=== PATIENT | male | born 1950 | race Caucasian/White ===

== ENCOUNTER 2018-01-30 07:33 | Outpatient (CLI) | payer MEDICARE, OTHER ==
--- NOTE | 2018-01-30 10:39 | CT Report ---
Reason: LUKAS ABUSE Procedure Date: 01/30/2018 Accession Number: [id number] / [id number] Procedure: CT - Chest/Lung Screen Low Dose W/O CPT Code: FULL RESULT: EXAM CT LUNG SCREEN EXAM DATE: 01/30/2018 07:49 AM. HISTORY: 67-year-old patient with [id number] smoking history. Currently smoking: Yes. COMPARISON: None. TECHNIQUE: CT examination of the entire thorax without contrast was performed using low-dose technique. Thin section coronal, axial, sagittal and MIP axial images were obtained. In accordance with CT protocol optimization, one or more of the following dose reduction techniques were utilized for this exam: automated exposure control, adjustment of mA and/or KV based on patient size, or use of iterative reconstructive technique. FINDINGS: Nodules: Right upper lobe: None. Right middle lobe: None. Right lower lobe: None. Left upper lobe: None. Left lower lobe: None. Emphysema: None. Pleura: Unremarkable. Aorta: Calcified. Mediastinum: Unremarkable. Coronary calcifications: None. Other pulmonary findings: None. Other extrapulmonary findings: Visualized portion of the upper abdomen demonstrates a low density lesion in the posterior right lobe of the liver with Hounsfield units most consistent with a simple cyst. IMPRESSION: Lung-RADS ASSESSMENT CATEGORY: 0 - negative Probability of malignancy: Not applicable. RECOMMENDATION: Recommended follow up based on Lung-RADS guidelines. RADIA
== END 2018-01-30 07:34 | disposition home or self-care (01) ==
LOC: DI 07:33
PROVIDERS: ATTEND Family Medicine
DX: Z12.2 Encounter for screening for malignant neoplasm of respiratory organs (principal); F17.210 Nicotine dependence, cigarettes, uncomplicated

== ENCOUNTER 2018-05-02 08:00 | Outpatient (CLI) | payer MEDICARE, OTHER ==
[2018-05-02 14:03] LABS: CREATININE 0.7 mg/dL (0.6-1.2)
== END 2018-05-02 23:59 | disposition home or self-care (01) ==
LOC: LAB.N 08:00
PROVIDERS: ATTEND Family Medicine
DX: R51 Headache (principal); R52 Pain, unspecified
CPT/HCPCS: 36415; 82565

== ENCOUNTER 2018-05-02 08:09 | Outpatient (CLI) | payer MEDICARE, OTHER ==
--- NOTE | 2018-05-02 11:43 | XRAY Report ---
Reason: NECK PAIN, STIFFNESS VE PARASTHESIAS/RECENT INSE Procedure Date: 05/02/2018 Accession Number: [id number] / [id number] Procedure: XRN - Cervical Spine Complete CPT Code: FULL RESULT: EXAM: CERVICAL SPINE RADIOGRAPHY EXAM DATE: 05/02/2018 08:39 AM. CLINICAL HISTORY: Neck pain, stiffness for 1 year. Doing worse. COMPARISONS: None. TECHNIQUE: 5 views. FINDINGS: Alignment: Normal. No spondylolisthesis or scoliosis. Bones: The cervical vertebral bodies and posterior elements are well-visualized from the skull base through inferior C7. The C7-T1 disk level is mostly obscured by soft tissue attenuation of the shoulder. No fractures or bone lesions. Disks: Mild disk space narrowing at C5-C6 with mild anterior osteophyte. Moderate disk space narrowing at C6-C7 also with mild anterior osteophyte. Facets: Asymmetric left-sided facet arthrosis at C3-C6 with an appearance of moderate foraminal narrowing on the left at C3-C4 and C4-C5. Neural Foramina: As above. Soft Tissues: Normal. No prevertebral soft tissue swelling. The visualized lung apices are clear. IMPRESSION: Degenerative changes as described with moderate foraminal narrowing on the left at C3-C4 and C4-C5. No fracture appreciated. RADIA
== END 2018-05-02 08:10 | disposition home or self-care (01) ==
LOC: DI.N 08:09
PROVIDERS: ATTEND Family Medicine
DX: M47.812 Spondylosis without myelopathy or radiculopathy, cervical region (principal); M48.02 Spinal stenosis, cervical region; M25.78 Osteophyte, vertebrae; R51 Headache
CPT/HCPCS: 36415; 72050; 82565

== ENCOUNTER 2018-08-27 19:25 | Outpatient (CLI) | payer MEDICARE, OTHER | END 2018-08-27 19:26 | disposition critical access hospital (66) | LOC: EMS 19:25 | PROVIDERS: ATTEND Surgery | DX: T18.128A Food in esophagus causing other injury, initial encounter (principal); R13.10 Dysphagia, unspecified; R11.10 Vomiting, unspecified | CPT/HCPCS: A0425; A0429 ==

== ENCOUNTER 2018-08-27 19:46 | Emergency (ER) | payer MEDICARE, OTHER ==
[2018-08-27] MEDS ORDERED: GLUCAGON 1 MG/ML VIAL IVP STA (19:49)
--- NOTE | 2018-08-27 19:55 | ED Physician Documentation ---
PD HPI ABD PAIN - Stated complaint Stated Complaint: FOOD OBSTRUCTION - History obtained from History obtained from: Patient, EMS - History of Present Illness Timing - onset: Today (67-year-old gentleman with history of Parkinson's who has been having increasing problems with getting food stuck over the last 8 months or so but has never needed to seek medical attention for it. Feels like he has a pork chop stuck in his esophagus, mid sternum for the last 2 hours. His airway is fine but he is not able to tolerate his secretions.) Review of Systems Ten Systems: 10 systems reviewed and negative Constitutional: reports: Reviewed and negative Nose: reports: Reviewed and negative Cardiac: reports: Reviewed and negative Respiratory: reports: Reviewed and negative PD PAST MEDICAL HISTORY - Past Medical History Past Medical History: Yes Neuro: Parkinson's - Allergies Allergies/Adverse Reactions: Allergies Allergy/AdvReac Type Severity Reaction Status Date / Time No Known Drug Allergies Allergy Verified 08/27/18 19:55 - Social History Does the pt smoke?: Yes Smoking Status: Current every day smoker Does the pt have substance abuse?: No - Family History Family history: reports: Non contributory PD ED PE NORMAL - Vitals Vital signs reviewed: Yes - General General: Alert and oriented X 3, No acute distress, Other (Spitting into a bag but speaking normally) - HEENT HEENT: PERRL, Pharynx benign - Neck Neck: Supple, no meningeal sign, No bony TTP - Cardiac Cardiac: RRR, No murmur - Respiratory Respiratory: No respiratory distress, Clear bilaterally - Abdomen Abdomen: Soft, Non tender - Derm Derm: Normal color, Warm and dry - Extremities Extremities: No edema, No calf tenderness / cord - Neuro Neuro: Alert and oriented X 3, Normal speech Results - Vitals Vitals: Vital Signs - 24 hr 08/27/18 19:52 Temperature 36.7 C Heart Rate 83 Respiratory 20 Rate Blood Pressure 137/91 H O2 Saturation 98 Oxygen O2 Source Room air PD MEDICAL DECISION MAKING - ED course ED course: 67-year-old gentleman with what sounds like progressive esophageal food impactions with an esophageal food impaction tonight. He was able to tolerate liquids okay after the administration of glucagon. He still felt like something was off and there, I discussed with him the he needs an upper endoscopy to assess this in the relatively short-term and is given a referral to a local surgeon for same. Departure - Departure Disposition: 01 Home, Self Care Clinical Impression: Esophageal obstruction due to food impaction Condition: Good Record reviewed to determine appropriate education?: Yes Instructions: ED Foreign Body Esophageal Rslv Follow-Up: Jojo Smith MD [Provider Admit Priv/Credential] - Comments: As discussed, he will need an upper endoscopy to assess why you keep getting food blocks. Call the surgeon listed on this form tomorrow to make an appointment, return if worse. I would not eat meat or large chunks of food until then.
[2018-08-27 20:51] VITALS: BP 122/94
== END 2018-08-27 20:51 | disposition home or self-care (01) ==
LOC: EDUNIT# → ED 19:46
DX: T18.128A Food in esophagus causing other injury, initial encounter (principal); X58.XXXA Exposure to other specified factors, initial encounter; G20 Parkinson's disease; F17.200 Nicotine dependence, unspecified, uncomplicated
CPT/HCPCS: 96374; 99283

== ENCOUNTER 2018-09-04 10:27 | Outpatient (CLI) | payer MEDICARE, OTHER ==
--- NOTE | 2018-09-04 15:50 | CONSULTATION NOTE ---
Palliative Care Consultation - Referral Referring Provider: Dr Leon Painting Time of Visit: Felix 09/04/2018. 9:30 - 10:40 Referral setting: [facility] [place] Referral Reason: Progressive supranuclear palsy - Information Sources Records reviewed: Previous records reviewed History/Review of Systems obtained from: Patient, Family Exam limitations: No limitations, Intoxication - History of Present Illness Brief History of Present Illness: Thank you, Dr. Painting, for asking the palliative care consult service to be involved in the care of your patient. I am asked to provide palliative support for a 68-year-old male with progressive supranuclear palsy (PSP), and rapidly deteriorating motor function, dysphagia, dysarthria and antalgia. The patient was seen in June by Angelica Jesus MD in Neurology at the [facility]. She referred him Dr Leigh Guevara, movement disorder/neurogenetics neurologist. He had also seen a neurologist in [place] 3 years ago. Patient reports that he first noticed tremors in his hand 6-8 years ago. He started experiencing motor difficulties/balance problems about 3 years ago. He saw a neurologist in [place] around then, when they started trying to get a diagnosis. He has noticed his balance worsening in the past year. He's had only one fall so far, but has near falls quite frequently. He has no eye movement complaints but is having difficulty seeing TV. He has an compensation specialist appointment tomorrow. Neither he nor his were certain of his diagnosis, which is listed as progressive supranuclear palsy on previous medical records. His reports not having heard this diagnosis previously. The patient was familiar with it, but he appears unclear as to what his diagnosis is. Both are wanting to know what to expect as the disease progresses. They state they're aware there is no cure and no medications that alter its course. We did discuss trajectory of this motor neuron disease, with expected decline, dysphagia increasing his risk for aspiration pneumonia, and gait instability increasing his fall risk, and eventually losing the ability to walk. Patient is aware that pneumonia is a common cause of with this disease process. Provided education, information, and empathetic support as needed. Discussed risks of backward falls with PSP. Patient works on slowing himself down when he walks, avoiding impulsive movement and tries to take care when he moves. Patient and his , Jazz, were told he was being referred to PT, OT, but have had only PT set up. I explained what PT and OT do, and also Speech, and that any therapy will be supportive, not curative or altering the course of disease. They want to start ST due to his advancing dysphagia (he's eating only soups now). He feels frustration with his inability to work with his hands anymore; he enjoys doing woodwork and working with his hands. He will do some limited chores and tasks around the house, and then sits down. They used to hike and have a very active He feels his his mental capacity hasn't changed, and he doesn't feel exactly depressed, but more frustrated with not being able to do things he used to be able to do with his hands. Medical/Surgical History - Past Medical History Cardiovascular: reports: Hypertension Respiratory: reports: None Neuro: Parkinson's, Other (motor neuron disease, Progressive Supranuclear Palsy) Endocrine/Autoimmune: reports: None GI: reports: None : reports: Kidney stones HEENT: reports: None Psych: reports: None Musculoskeletal: reports: None Derm: reports: None - Substance History Tobacco Details: Cigarettes (former smoker, 1/2 PPD x 35 years) Social History - Living Situation Living arrangement: At home Living Situation: With spouse/s.o. Support System: He his , Carmen, in 1981. He is retired from the [employer] after joining age 17. Also worked as airplane electrician and government jobs. He has 4 adult children, ages 33-48. He has tow sons, and Carmen flores hadve a son and daughter together. Their 33-year-old son lives in [place]. Carmen is a preschool ([employer]) teacher. The patient likes woodworking and tinkering. Family History - Family History Family History Comment/Other: Fthaer age 70s of asbestosis. Mother age 80s, with DM2, dementia. Medications/Allergies - Medications Home Medications: Ambulatory Orders Medication Instructions Recorded Confirmed Carbidopa/Levodopa 25/100 [Sinemet 2 tab PO .QAM 08/27/18 09/04/18 25 mg/100 mg] Gabapentin 300 mg PO DAILY PM 08/27/18 09/04/18 Sertraline [Zoloft] 25 mg PO DAILY 08/27/18 09/04/18 Simvastatin 10 mg PO DAILY PM 08/27/18 09/04/18 Ascorbic Acid [Vitamin C] 500 mg PO DAILY PRN 09/04/18 09/04/18 Carbidopa/Levodopa 3 tab PO QPM 09/04/18 09/04/18 [Carbidopa-Levodopa 25-100 Tab] Cinnamon Bark [Cinnamon] 1,000 mg PO DAILY PRN MDD 09/04/18 09/04/18 .supplement Coq10 Supplement 200 mg PO DAILY PRN 09/04/18 09/04/18 Multivitamin [Multivitamins] 1 cap PO DAILY PRN 09/04/18 09/04/18 Propranolol [Inderal] 10 mg PO BID 09/04/18 09/04/18 Vitamin B Complex 1 cap PO DAILY PRN 09/04/18 09/04/18 Vitamin B12 1,000 mg PO DAILY PRN 09/04/18 09/04/18 - Allergies Allergies/Adverse Reactions: Allergies Allergy/AdvReac Type Severity Reaction Status Date / Time No Known Drug Allergies Allergy Verified 08/27/18 19:55 Review of Systems - Constitutional Constitutional: reports: Fatigue, Other (214 lbs (97.1kg, 29.68 BMI) at 07/18/18 neurology visit). denies: Poor appetite - Eyes Eyes: reports: Vision loss - Ears, Nose & Throat Ears, Nose & Throat: reports: Nasal congestion (chronic; uses Neti pot with some good results) - Cardiovascular Cardiovascular: reports: Decr. exercise tolerance. denies: Palpitations, Chest pain, Edema - Respiratory Respiratory: denies: Cough, SOB at rest - Gastrointestinal Gastrointestinal: reports: Constipation (intermittent) - Genitourinary Genitourinary: denies: Incontinence - Musculoskeletal Musculoskeletal: reports: Limited range of motion (L shoulder), Assistive devices (4-footed cane; wheelchair as needed), Transfer issues - Neurological Neurological: reports: General weakness, Abnormal gait - Psychiatric Psychiatric: reports: Depression (moderate), Anxiety (moderate; feels frustration with limitations) Physical Exam - Vital Signs Temperature: 96.3 F Pulse Rate: 80 O2 Saturation: 94 (room air) Blood Pressure: 118/88 (wrist cuff) - Physical Exam General Appearance: positive: No acute distress, Alert Eyes Bilateral: positive: Normal inspection ENT: positive: No signs of dehydration Neck: positive: Trachea midline Cardiovascular: positive: Regular rate & rhythm, No murmur, No gallop Respiratory: positive: Chest non-tender, No respiratory distress, Breath sounds nml Abdomen: positive: Non-tender, Soft Skin: positive: No symptoms Extremities: positive: No pedal edema. negative: Full ROM (L shoulder impingement) Neurologic/Psychiatric: positive: Oriented x3, Mood/affect nml, Slurred/abnml speech (dysarthria) Palliative Care - POLST Patient has POLST: Yes POLST Status: DNR, Selective Treatment Pain: Comment (mild pain, L shoulder) Tiredness/Fatigue: Moderate (4-6) Drowsiness/Sedation: Moderate (4-6) Nausea: None Anxiety: Moderate (4-6) Dyspnea: None Anorexia: None Sleep: Sleeps well Constipation: Managed Performance Status: rapidly deteriorating motor function increased choking/dysphagia. now is drinking soups mild dysarthria, intelligible speech stiff, wide gait, uses 4-footed cane weak lower extremities, requires assistance getting up from chair difficulty with fine motor skills/grasping with hands difficulty with reach, difficulty telling if he's holding something no cognitive or mood changes - Palliative Care Discussion: Patient has previously determined his POLST with his PCP: DNR, no heroics, but OK for hospitalization, but not artificial tube feeding or life support. He reiterates today that he would not want life support and does not want tube feeding. He is expecting to be wheelchair bound and he does realize this is terminal. They did not ask about life expectancy. Right now their greatest concern is any improvement /support of his functionality via therapy, and particularly ST for the dysphagia. They have an appointment with PT, but haven't heard anything about OT or Speech. He is currently on liquids/puree, soups. He is scheduled for an endoscopy on Saturday. Pain is not currently an issue. He does feel fatigue and frustration from physical limitations. He and Jazz had an active lifestyle, with camping, his woodwork. They both express regret, sadness with this loss. Presented palliative care social work and delivery person services, will reiterate in future visits as appropriate. Impression and Recommendations - Palliative Care Impression: 68-year-old male with progressive supranuclear palsy and rapidly deteriorating motor function, dysphagia, dysarthria and antalgia. He is pursuing diagnostics (endoscopy scheduled for next week) and PT, OT, ST therapy, and would benefit from ongoing palliative care support and monitoring. Recommendations/Counseling Done: Progressive Supranuclear Palsy: Patient's balance, motor skills, swallowing and speech are rapidly declining. ST/OT ordered by PCP. [facility] in [place] only does PT. Spoke with patient's spouse, they would like to go to a single location for PT, OT, Speech therapies, are agreeable to switch to [facility] clinic. Palliative care is working with PCP office to get orders for all three (PT OT ST) to [facility] rehab. He's seeing PCP next Saturday. Dysphagia: Worsening, currently on liquids, purees. Endoscopy scheduled for Friday 09/08. He would benefit from speech therapy for evaluation and treatment of dysphagia and dysarthria. See above. Vision loss: Difficulty viewing television, they have compensation specialist visit scheduled for next week. Advance care planning: POLST is at home, no copy in [facility]. DNR, selective treatment, no TF. Patient is agreeable to hospital transfers for reversible conditions. Patient does not want tube feeding or life support/intubation. Their current goals are getting his endoscopy and rehabilitation/speech therapy for swallowing issues, and also pursuing PT/OT therapies. Palliative care will continue to follow and support this patient and his family through the disease process. Follow up 1-2 weeks. Time Spent: 70 minutes were spent with more than 50% of the time spent on counseling, education, providing anticipatory guidance about progressive supranuclear palsy, and coordination of care with family and rehabilitation therapy.
== END 2018-09-04 10:28 | disposition home or self-care (01) ==
LOC: PC 10:27
PROVIDERS: ATTEND Nurse Practitioner
DX: Z51.5 Encounter for palliative care (principal); G23.1 Progressive supranuclear ophthalmoplegia [Steele-Richardson-Olszewski]; G20 Parkinson's disease; R13.10 Dysphagia, unspecified; R47.1 Dysarthria and anarthria; H54.7 Unspecified visual loss; F32.9 Major depressive disorder, single episode, unspecified; F41.9 Anxiety disorder, unspecified; Z91.81 History of falling; Z87.891 Personal history of nicotine dependence; Z66 Do not resuscitate; Z79.899 Other long term (current) drug therapy
CPT/HCPCS: 99205

== ENCOUNTER 2018-09-08 13:53 | Outpatient (CLI) | payer MEDICARE, OTHER ==
--- NOTE | 2018-09-08 15:00 | XRAY Report ---
Reason: ESOPHAGEAL STRICTURE Procedure Date: 09/08/2018 Accession Number: [id number] / [id number] Procedure: FL - Esophogram CPT Code: FULL RESULT: EXAM: BARIUM ESOPHAGRAM EXAM DATE: 09/08/2018 02:38 PM. CLINICAL HISTORY: Esophageal stricture. COMPARISONS: None. TECHNIQUE: Routine double contrast esophagram. Fluoroscopy Time: 2 minutes 8 seconds. Number of Images: 36. FINDINGS: Swallowing Mechanism: Normal. No tracheal aspiration or penetration during swallowing. Delayed aspiration is noted in the form of coughing as pooled contrast material is unable to pass the distal esophagus. Esophageal Motility: Esophageal spasm is seen. Mucosa: Limited evaluation due to persistent contrast column, diffuse esophageal spasm and stricture. Gastroesophageal Junction: There is a persistent stricture which inhibits passing of the barium tablet in the region of the gastroesophageal junction. A mass in this region is not excluded. Other: None. IMPRESSION: Distal esophageal stricture with resulting esophageal spasm and aspiration. Recommendation: Upper endoscopy for diagnosis including exclusion of underlying malignancy and consideration for therapeutic dilation as indicated. RADIA
== END 2018-09-08 13:54 | disposition home or self-care (01) ==
LOC: DI 13:53
PROVIDERS: ATTEND Surgery
DX: K22.2 Esophageal obstruction (principal); K22.4 Dyskinesia of esophagus
CPT/HCPCS: 74220

== ENCOUNTER 2018-12-02 10:11 | Outpatient (CLI) | payer MEDICARE, OTHER ==
--- NOTE | 2018-12-03 17:13 | XRAY Report ---
Reason: CHRONIC R HIP PAIN, FALL 05/2018 Procedure Date: 12/02/2018 Accession Number: [id number] / [id number] Procedure: XRN - Hips 2V BILAT CPT Code: FULL RESULT: EXAM: BILATERAL HIP RADIOGRAPHY EXAM DATE: 12/02/2018 10:43 AM. CLINICAL HISTORY: CHRONIC R HIP PAIN, FALL 05/2018. COMPARISON: None. TECHNIQUE: 2 views each. FINDINGS: Bones: Normal. No fractures or bone lesion. Right Hip: Normal. No dislocation. The hip joint space is preserved. Left Hip: Normal. No dislocation. The hip joint space is preserved. Soft Tissues: Normal. No soft tissue swelling. IMPRESSION: Normal bilateral hip radiography. RADIA
== END 2018-12-02 10:12 | disposition home or self-care (01) ==
LOC: DI.N 10:11
PROVIDERS: ATTEND Family Medicine
DX: M25.551 Pain in right hip (principal); M25.552 Pain in left hip; G89.29 Other chronic pain
CPT/HCPCS: 73521

== ENCOUNTER 2018-12-10 08:50 | Outpatient (CLI) | payer MEDICARE, OTHER ==
--- NOTE | 2018-12-10 10:52 | Ultrasound Report ---
Reason: RETENTION OF URINE, PROGRESSIVE SUPRANUCLEAR OPHTH Procedure Date: 12/10/2018 Accession Number: [id number] / [id number] Procedure: US - Bladder CPT Code: FULL RESULT: EXAM: PELVIS ULTRASOUND, LIMITED EXAM DATE: 12/10/2018 09:24 AM. CLINICAL HISTORY: RETENTION OF URINE, PROGRESSIVE SUPRANUCLEAR OPHTH. COMPARISON: None. TECHNIQUE: Real-time scanning was performed with static images obtained. Region of interest: Urinary bladder. FINDINGS: Urinary bladder demonstrates prevoid volume of 200 cc, postvoid volume of 32 cc. Bilateral ureteral jets are seen. There is focal thickening/mass along the right bladder wall measuring up to 1.1 x 2.1 x 1.7 cm with internal vascularity, suspicious for neoplasia. IMPRESSION: 1. Apparent bladder wall mass, suspicious for neoplasia. Cystoscopic correlation recommended. 2. Postvoid bladder volume 32 cc. RADIA The call report notification system was initiated by Dr. Suraj Torrez at 10:43 AM on 12/10/2018. The above call report findings were discussed with Dr Edison Mcnamara by Dr. Suraj Torrez at 10:51 AM on 12/10/2018.
== END 2018-12-10 08:51 | disposition home or self-care (01) ==
LOC: DI 08:50
PROVIDERS: ATTEND Internal Medicine
DX: N32.89 Other specified disorders of bladder (principal); R33.8 Other retention of urine; G23.1 Progressive supranuclear ophthalmoplegia [Steele-Richardson-Olszewski]
CPT/HCPCS: 76857

== ENCOUNTER 2018-12-11 07:49 | Outpatient (CLI) | payer MEDICARE, OTHER ==
[2018-12-11] MEDS ORDERED: IOVERSOL 320 100 ML VIAL IVP ONE ×2 (08:18→09:44)
[2018-12-11] MEDS ORDERED: IOVERSOL 320 50 ML VIAL ONE (08:18)
[2018-12-11 08:37] LABS: CREATININE 0.8 mg/dL (0.6-1.2)
--- NOTE | 2018-12-11 18:15 | CT Report ---
Reason: BLADDER MASS SEEN ON US Procedure Date: 12/11/2018 Accession Number: [id number] / [id number] Procedure: CT - Abdomen/Pelvis W CPT Code: FULL RESULT: EXAM: CT ABDOMEN AND PELVIS EXAM DATE: 12/11/2018 09:38 AM. CLINICAL HISTORY: BLADDER MASS SEEN ON US. COMPARISONS: BLADDER 12/10/2018 9:24 AM. TECHNIQUE: Routine helical CT imaging was performed through the abdomen and pelvis. Delayed imaging performed through the pelvis. IV contrast: OPTI 320 100ML. Enteric contrast: Yes. Reconstructions: Coronal and sagittal. In accordance with CT protocol optimization, one or more of the following dose reduction techniques were utilized for this exam: automated exposure control, adjustment of mA and/or KV based on patient size, or use of iterative reconstructive technique. FINDINGS: Lung Bases: 5 mm nodule left lower lobe containing calcification 06/06. No pleural effusion. Liver: 4 cm right lobe hepatic cyst 26 cm low attenuation anterior liver 15 to small to accurately characterize.. No masses. Gallbladder/Bile Ducts: Unremarkable. Spleen: Normal. Pancreas: Normal. Adrenal Glands: Normal. Kidneys: Nonobstructing right lower pole 6 and 3 mm stones. Nonobstructing left lower pole 1.2 cm stone. No hydronephrosis or solid mass. Peritoneal Cavity/Bowel: No free fluid, free air or adenopathy. No masses or acute inflammatory process. The appendix is unremarkable. There is extensive colonic diverticulosis. There is wall thickening of the sigmoid colon with minimal posterior fat stranding , 6/34, 5/42 and asymmetric wall thickening. Pelvic Organs: The bladder appears thick-walled and trabeculated. The mass described on the prior ultrasound report along the right side of the bladder is not currently appreciated . There is a 9 mm right-sided bladder diverticulum 12/11. The prostate is mildly enlarged in size, volume 36 cc. 3 cm tubular structure anterior to the bladder on the left is of uncertain significance. Vasculature: Descending aorta borderline in size 3.1 cm .. Bones: No significant abnormality. Other: None. IMPRESSION: 1. The bladder mass described on the 12/10/2018 ultrasound report is not appreciated on this study. Further evaluation by cystoscopy suggested. 2. The bladder appears thick-walled, trabeculated, and with a small right-sided diverticulum, consider chronic obstruction. 3. Prominent prostate, volume 36 cc. 4. Borderline descending aorta 3.1 cm. 5. 3 cm tubular structure anterior to the left bladder, uncertain significance. 6. Extensive colonic diverticulosis most marked sigmoid. Asymmetric sigmoid wall thickening with associated fat stranding may be secondary to chronic inflammation; other etiologies not excluded. Consider colonoscopy if this has not been performed. 7. Bilateral nonobstructing renal calculi. 8. 4 cm hepatic cyst. 9. Left lower lobe granuloma. RADIA
== END 2018-12-11 07:50 | disposition home or self-care (01) ==
LOC: DI 07:49
PROVIDERS: ATTEND Family Medicine
DX: N32.3 Diverticulum of bladder (principal); N40.0 Benign prostatic hyperplasia without lower urinary tract symptoms; K57.30 Diverticulosis of large intestine without perforation or abscess without bleeding; N20.0 Calculus of kidney; K76.89 Other specified diseases of liver; J84.10 Pulmonary fibrosis, unspecified
CPT/HCPCS: 36415; 74177; 82565; Q9967

== ENCOUNTER 2019-05-09 12:44 | Outpatient (CLI) | payer MEDICARE, OTHER ==
--- NOTE | 2019-05-11 02:47 | Ultrasound Report ---
Reason: LT INGUINAL PAIN Procedure Date: 05/09/2019 Accession Number: [id number] / [id number] Procedure: US - Pelvic Limited or F/U CPT Code: Final Report FULL RESULT: EXAM: INGUINAL ULTRASOUND EXAM DATE: 05/11/2019. CLINICAL HISTORY: LT INGUINAL PAIN. COMPARISON: None. TECHNIQUE: Real-time sonographic imaging of the left inguinal canal and vascular structures, including color-flow, was performed by the strategic communications specialist. Multiple accounting representative static images were saved for review. FINDINGS: Hernia: None identified with or without Valsalva. Soft Tissues: Normal. No fluid collections or adenopathy. Other: Postsurgical changes at the left groin likely reflect a history of left inguinal hernia repair.. IMPRESSION: Normal. No inguinal hernia evident. RADIA
== END 2019-05-09 12:45 | disposition home or self-care (01) ==
LOC: DI 12:44
PROVIDERS: ATTEND Physician Assistant
DX: R10.32 Left lower quadrant pain (principal)
CPT/HCPCS: 76857

== ENCOUNTER 2019-09-24 11:10 | Outpatient (CLI) | payer MEDICARE, OTHER ==
--- NOTE | 2019-09-24 13:21 | XRAY Report ---
PROCEDURE: Abdomen 1 View X-Ray INDICATIONS: NEPHROLITHIASIS TECHNIQUE: 1 view of the abdomen were acquired. COMPARISON: CT dated 12/11/2018 FINDINGS: Surgical changes and devices: None. Bowel: No pneumoperitoneum. The bowel gas pattern is nonobstructive. Soft tissues: No masses; visualized solid organ contours appear normal in size. No suspicious abdom inal calcifications. There is an 11 mm oval calcification projecting over the central aspect of the l eft renal shadow compatible with previously described nephrolith. The smaller, 6 mm right nephrolith seen on comparison CT is not visualized radiographically. Bones: No suspicious bony abnormalities. IMPRESSION: Abdomen without acute radiographic abnormalities. 11 mm left renal stone comparable to size and location seen on comparison CT dated 12/11/2018. Previously seen 6 mm right-sided nephrolith is not visualized radiographically. Reviewed by: Javi Perez MD on 09/24/2019 1:20 PM PDT Approved by: Javi Perez MD on 09/24/2019 1:20 PM PDT Station ID: [id number]
== END 2019-09-24 11:11 | disposition home or self-care (01) ==
LOC: DI 11:10
PROVIDERS: ATTEND Urology
DX: N20.0 Calculus of kidney (principal); R39.9 Unspecified symptoms and signs involving the genitourinary system; Z12.5 Encounter for screening for malignant neoplasm of prostate
CPT/HCPCS: 36415; 74018; 84153

== ENCOUNTER 2019-09-24 11:30 | Outpatient (CLI) | payer MEDICARE, OTHER | END 2019-09-24 11:31 | disposition home or self-care (01) | LOC: LAB 11:30 | PROVIDERS: ATTEND Urology | DX: R39.9 Unspecified symptoms and signs involving the genitourinary system (principal); Z12.5 Encounter for screening for malignant neoplasm of prostate | CPT/HCPCS: 36415; 84153 ==

== ENCOUNTER 2020-08-16 20:26 | Outpatient (CLI) | payer MEDICARE, OTHER | END 2020-08-16 20:27 | disposition critical access hospital (66) | LOC: EMS 20:26 | DX: F41.9 Anxiety disorder, unspecified (principal); R42 Dizziness and giddiness; R53.1 Weakness; I10 Essential (primary) hypertension | CPT/HCPCS: A0425; A0429 ==

== ENCOUNTER 2020-08-16 20:45 | Emergency (ER) | payer MEDICARE, OTHER ==
[2020-08-16] MEDS ORDERED: SODIUM CHLORIDE 0.9% 500 ML IV STA (20:53)
--- NOTE | 2020-08-16 20:54 | ED Physician Documentation ---
PD HPI DYSPNEA - Stated complaint Stated Complaint: ELEVATED BP/DIZZY - History obtained from History obtained from: Patient, Family, EMS - History of Present Illness Timing - onset: Today (he takes his BP twice daily regularly and is usually 110/70. Today noted it 145/100. No chest pain, dyspnea, headache. Had felt less fluid intake the past day or two. No illness per se.) Timing - onset during: Rest Timing - details: Abrupt onset (just this evening noted BP elevated. HR normal.) Inciting event(s): No: URI, Emotional event Improved by: No: Rest Associated symptoms: No: Fever, Cough, Wheezing, Chest pain / discomfort, Bilateral edema, Anxiety Similar symptoms before: Has not had sx before Recently seen: Not recently seen Review of Systems Constitutional: denies: Fever, Myalgias Nose: denies: Rhinorrhea / runny nose, Congestion Throat: denies: Sore throat Cardiac: denies: Chest pain / pressure, Palpitations Respiratory: denies: Cough GI: denies: Abdominal Pain, Vomiting, Diarrhea, Bloody / black stool : denies: Dysuria, Frequency Neurologic: denies: Near syncope, Altered mental status, Headache PD PAST MEDICAL HISTORY - Past Medical History Cardiovascular: Hypertension Respiratory: None Neuro: Parkinson's, Other (motor neuron disease, Progressive Supranuclear Palsy) Endocrine/Autoimmune: None GI: None : Kidney stones HEENT: None Psych: None Musculoskeletal: None Derm: None - Present Medications Home Medications: Ambulatory Orders Medication Instructions Recorded Confirmed Carbidopa/Levodopa 25/100 [Sinemet 2 tab PO .QAM 08/27/18 08/16/20 25 mg/100 mg] Sertraline [Zoloft] 25 mg PO DAILY 08/27/18 08/16/20 Simvastatin 10 mg PO DAILY PM 08/27/18 08/16/20 Ascorbic Acid [Vitamin C] 500 mg PO DAILY PRN 09/04/18 08/16/20 Cinnamon Bark [Cinnamon] 1,000 mg PO DAILY PRN MDD 09/04/18 08/16/20 .supplement Coq10 Supplement 200 mg PO DAILY PRN 09/04/18 08/16/20 Multivitamin [Multivitamins] 1 cap PO DAILY PRN 09/04/18 08/16/20 Vitamin B12 1,000 mg PO DAILY PRN 09/04/18 08/16/20 Celecoxib [CeleBREX] 100 mg PO BID 08/16/20 08/16/20 Riluzole [Rilutek] 50 mg PO DAILY 08/16/20 08/16/20 - Allergies Allergies/Adverse Reactions: Allergies Allergy/AdvReac Type Severity Reaction Status Date / Time No Known Drug Allergies Allergy Verified 08/27/18 19:55 - Social History Does the pt smoke?: Yes Smoking Status: Current every day smoker Does the pt drink ETOH?: No Does the pt have substance abuse?: No - Immunizations Immunizations are current?: Yes - POLST Patient has POLST: Yes PD ED PE NORMAL - Vitals Vital signs reviewed: Yes - General General: Alert and oriented X 3, No acute distress, Well developed/nourished - HEENT HEENT: Pharynx benign - Neck Neck: Supple, no meningeal sign, No adenopathy - Cardiac Cardiac: RRR, No murmur - Respiratory Respiratory: Clear bilaterally - Abdomen Abdomen: Soft, Non tender - Male Male : Deferred - Rectal Rectal: Deferred - Back Back: No CVA TTP - Derm Derm: Normal color, Warm and dry - Extremities Extremities: No deformity, No tenderness to palpate, No edema, No calf tenderness / cord - Neuro Neuro: Alert and oriented X 3, 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 No: ST elevation c/w ischemia, ST depression - Labs Labs: Laboratory Tests 08/16/20 08/16/20 08/16/20 21:08 21:20 21:20 WBC 6.5 RBC 4.82 Hgb 14.8 Hct 44.9 MCV 93.2 MCH 30.7 MCHC 33.0 RDW 13.2 Plt Count 169 MPV 9.9 Neut # (Auto) 3.1 Lymph # (Auto) 2.5 [place] # (Auto) 0.6 Eos # (Auto) 0.1 Baso # (Auto) 0.1 Absolute Nucleated RBC 0.00 Nucleated RBC % 0.0 Sodium 140 Potassium 4.0 Chloride 108 Carbon Dioxide 25 Anion Gap 7.0 BUN 17 Creatinine 0.7 Estimated GFR (MDRD) 111 Glucose 101 H Calcium 8.9 Magnesium 2.1 Total Bilirubin 0.6 AST 19 ALT 23 Alkaline Phosphatase 54 Troponin I High Sens B-Natriuretic Peptide Total Protein 7.0 Albumin 4.2 Globulin 2.8 Albumin/Globulin Ratio 1.5 Lipase 25 Urine Color YELLOW Urine Clarity CLEAR Urine pH 6.0 Ur Specific [place] 1.025 Urine Protein NEGATIVE Urine Glucose (UA) NEGATIVE Urine Ketones NEGATIVE Urine Occult Blood NEGATIVE Urine Nitrite NEGATIVE Urine Bilirubin NEGATIVE Urine Urobilinogen 0.2 (NORMAL) Ur Leukocyte Esterase NEGATIVE Ur Microscopic Review NOT INDICATED Urine Culture Comments NOT INDICATED 08/16/20 08/16/20 21:20 21:20 WBC RBC Hgb Hct MCV MCH MCHC RDW Plt Count MPV Neut # (Auto) Lymph # (Auto) [place] # (Auto) Eos # (Auto) Baso # (Auto) Absolute Nucleated RBC Nucleated RBC % Sodium Potassium Chloride Carbon Dioxide Anion Gap BUN Creatinine Estimated GFR (MDRD) Glucose Calcium Magnesium Total Bilirubin AST ALT Alkaline Phosphatase Troponin I High Sens 6.6 B-Natriuretic Peptide 22 Total Protein Albumin Globulin Albumin/Globulin Ratio Lipase Urine Color Urine Clarity Urine pH Ur Specific [place] Urine Protein Urine Glucose (UA) Urine Ketones Urine Occult Blood Urine Nitrite Urine Bilirubin Urine Urobilinogen Ur Leukocyte Esterase Ur Microscopic Review Urine Culture Comments - Rads (name of study) chest xray Radiology: Prelim report reviewed (no acute process), See rad report PD MEDICAL DECISION MAKING - ED course Complexity details: reviewed results (no acute abnormalities. ), re-evaluated patient, considered differential (unusually elevated BP for the patient but not extremely elevated by numbers per se. No obvious contributor for it. Basic labs and exam normal. ), d/w patient Departure - Departure Disposition: 01 Home, Self Care Clinical Impression: Elevated blood pressure reading Condition: Stable Record reviewed to determine appropriate education?: Yes Instructions: ED Hypertension Poss Comments: Your chest x-ray, EKG, blood tests are good here. No signs of significant abnormality causing your blood pressure to be elevated. At this point stay well-hydrated and low-salt foods and see how it does over the next week or so. Follow-up with your primary care if persistently elevated. Return if symptoms such as shortness of breath, edema, persistent headache, chest pain or other concerns. Discharge Date/Time: 08/16/20 23:00
--- OUTSIDE RECORDS SUMMARY | 2020-08-16 21:18 | EXTERNAL MEDICAL SUMMARY RPT | Continuity of Care Document ---
:1950 Demographics Phone Unavailable Preferred Language Micronesian Marital Status Unknown Jew Affiliation Unknown Race Unknown Ethnic Group Unknown Author Organization [place] Address [address] [phone] Phone Care Team Providers Name Role Phone Ayana Unavailable Unavailable Allergies Encounters Medications date description facility 20200525 Simvastatin 10 MG Oral Tablet [facility] 20200525 Sertraline [address] [facility] spital 20200525 gabapentin 300 MG Oral Capsule [facility] 20200525 Acetaminophen 250 MG / Aspirin 250 MG / Caffeine 65 MG [facility] Oral Tablet [Excedrin] 20200525 Albuterol 0.833 MG/ML / Ipratropium Bro mide 0.167 MG/ML [facility] Inhalant Solution Problems date description facility 20200525 Dysphagia, pharyngoesophageal phase Is [facility] 20200523 Encounter for preprocedural laboratory examination [facility] 20200523 Contact with and (suspected) exposure t o COVID-19 [facility] Procedures date description facility 20200525 [facility] 20200523 [facility] Results Vital Signs date measurement value source 20200525 weight_standard 193.98 lb 20200525 weight_metric 87.99 kg 20200525 temperature_standard 98.1 F 20200525 temperature_metric 36.72 C 20200525 respiration_rate 11 /min 20200525 height_standard 71 in 20200525 height_metric 180.34 cm 20200525 heart_rate 62 /min 20200525 BP_systolic 118 mm[Hg] 20200525 BP_diastolic 76 mm[Hg] 20200525 BMI 27.0 kg/m2
[2020-08-16 21:29] LABS: BASOPHILS # (AUTO) 0.1 10^3/uL (0.0-0.1); BASOPHILS % (AUTO) 1.4 %; EOSINOPHILS # (AUTO) 0.1 10^3/uL (0.0-0.7); EOSINOPHILS % (AUTO) 1.8 %; HCT - HEMATOCRIT 44.9 % (42.0-52.0); HGB - HEMOGLOBIN 14.8 g/dL (14.0-18.0); LYMPHOCYTES # (AUTO) 2.5 10^3/uL (1.5-3.5); LYMPHOCYTES % (AUTO) 38.8 %; MEAN CORPUSCULAR HEMOGLOBIN 30.7 pg (27.0-31.0); MEAN CORPUSCULAR VOLUME 93.2 fL (80.0-94.0); MEAN PLATELET VOLUME 9.9 fL (7.4-11.4); MONOCYTES # (AUTO) 0.6 10^3/uL (0.0-1.0); MONOCYTES % (AUTO) 9.9 %; NEUTROPHILS # (AUTO) 3.1 10^3/uL (1.5-6.6); NEUTROPHILS % (AUTO) 47.9 %; PLT - PLATELET COUNT 169 10^3/uL (130-450); RED BLOOD COUNT 4.82 10^6/uL (4.70-6.10); RED CELL DISTRIBUTION WIDTH 13.2 % (12.0-15.0); WHITE BLOOD COUNT 6.5 x10^3/uL (4.8-10.8)
[2020-08-16 21:30] LABS: BILIRUBIN,URINE NEGATIVE (NEGATIVE); GLUCOSE, URINE (UA) NEGATIVE (NEGATIVE); KETONES,URINE (UA) NEGATIVE (NEGATIVE); LEUKOCYTE ESTERASE, URINE NEGATIVE (NEGATIVE); NITRITE,URINE NEGATIVE (NEGATIVE); OCCULT BLOOD,URINE NEGATIVE (NEGATIVE); PROTEIN,URINE NEGATIVE (NEGATIVE); UROBILINOGEN,URINE 0.2 (NORMAL) E.U./dL (NORMAL)
[2020-08-16 21:32] LABS: CLARITY,URINE CLEAR (CLEAR)
[2020-08-16 21:40] LABS: ALBUMIN 4.2 g/dL (3.2-5.5); ALBUMIN/GLOBULIN RATIO 1.5 (1.0-2.2); BILIRUBIN,TOTAL 0.6 mg/dL (0.2-1.0); CALCIUM 8.9 mg/dL (8.5-10.3); CREATININE 0.7 mg/dL (0.6-1.2); MAGNESIUM 2.1 mg/dL (1.7-2.8)
--- NOTE | 2020-08-16 21:45 | XRAY Report ---
PROCEDURE: Chest 1 View X-Ray INDICATIONS: Chest Pain TECHNIQUE: One view of the chest was acquired. COMPARISON: None. FINDINGS: Surgical changes and devices: None. Lungs and pleura: No pleural effusions or pneumothorax. Lungs are clear. Mediastinum: Mediastinal contours appear normal. Heart size is normal. Bones and chest wall: No suspicious bony lesions. Overlying soft tissues appear unremarkable. IMPRESSION: No acute disease. Reviewed by: Saul Ashby MD on 08/16/2020 9:43 PM PDT Approved by: Saul Ashby MD on 08/16/2020 9:43 PM PDT Station ID: [id number]
[2020-08-16 22:21] VITALS: BP 139/99
== END 2020-08-16 23:00 | disposition home or self-care (01) ==
LOC: EDUNIT# → ED 20:45
DX: I10 Essential (primary) hypertension (principal); R42 Dizziness and giddiness; G20 Parkinson's disease; G23.1 Progressive supranuclear ophthalmoplegia [Steele-Richardson-Olszewski]; F17.200 Nicotine dependence, unspecified, uncomplicated
CPT/HCPCS: 36415; 80053; 81001; 81003; 83690; 83735; 83880; 84484; 85025; 87086; 93005; 96360; 99283

== ENCOUNTER 2020-10-21 11:00 | Outpatient (CLI) | payer MEDICARE, OTHER | END 2020-10-21 11:01 | disposition critical access hospital (66) | LOC: EMS 11:00 | DX: R07.89 Other chest pain (principal); R00.0 Tachycardia, unspecified | CPT/HCPCS: A0425; A0427 ==

== ENCOUNTER 2020-10-21 11:23 | Emergency (ER) | payer MEDICARE, OTHER ==
--- NOTE | 2020-10-21 11:47 | ED Physician Documentation ---
History of Present Illness - Stated complaint Stated Complaint: CP - Chief complaint Chief Complaint: Cardiac - History obtained from History obtained from: Patient, Family, EMS - History of Present Illness Timing: Today Pain level max: 5 Pain level now: 0 - Additonal information Additional information: Patient is a 70-year-old male brought in by EMS and family today. He states that he was at home when he began to develop chest pain. Had mild shortness of breath as well. Nonradiating. [place] like a dull ache. [place] his heart racing. This has not happened before. Has a history of Parkinson's disease. No cardiac history. No history of acute coronary syndrome. No stents or bypasses. EMS arrived and found him to be in SVT. Given 6 of adenosine and then 12 adenosine. Converted to sinus rhythm and symptoms resolved. Patient currently asymptomatic. Review of Systems Ten Systems: 10 systems reviewed and negative Constitutional: denies: Fever, Chills Throat: denies: Sore throat Cardiac: reports: Palpitations. denies: Calf pain Respiratory: denies: Cough, Wheezing GI: denies: Nausea, Vomiting : denies: Dysuria Musculoskeletal: denies: Neck pain, Back pain Neurologic: denies: Headache PD PAST MEDICAL HISTORY - Past Medical History Cardiovascular: Hypertension Respiratory: None Neuro: Parkinson's, Other (motor neuron disease, Progressive Supranuclear Palsy) Endocrine/Autoimmune: None GI: None : Kidney stones HEENT: None Psych: None Musculoskeletal: None Derm: None - Past Surgical History Past Surgical History: Yes - Present Medications Home Medications: Ambulatory Orders Medication Instructions Recorded Confirmed Carbidopa/Levodopa 25/100 [Sinemet 2 tab PO .QAM 08/27/18 08/16/20 25 mg/100 mg] Sertraline [Zoloft] 25 mg PO DAILY 08/27/18 08/16/20 Simvastatin 10 mg PO DAILY PM 08/27/18 08/16/20 Ascorbic Acid [Vitamin C] 500 mg PO DAILY PRN 09/04/18 08/16/20 Cinnamon Bark [Cinnamon] 1,000 mg PO DAILY PRN MDD 09/04/18 08/16/20 .supplement Coq10 Supplement 200 mg PO DAILY PRN 09/04/18 08/16/20 Multivitamin [Multivitamins] 1 cap PO DAILY PRN 09/04/18 08/16/20 Vitamin B12 1,000 mg PO DAILY PRN 09/04/18 08/16/20 Celecoxib [CeleBREX] 100 mg PO BID 08/16/20 08/16/20 Riluzole [Rilutek] 50 mg PO DAILY 08/16/20 08/16/20 - Allergies Allergies/Adverse Reactions: Allergies Allergy/AdvReac Type Severity Reaction Status Date / Time No Known Drug Allergies Allergy Verified 10/21/20 11:35 - Social History Does the pt smoke?: Yes Smoking Status: Current every day smoker Does the pt drink ETOH?: No Does the pt have substance abuse?: No - Immunizations Immunizations are current?: Yes - POLST Patient has POLST: Yes PD ED PE NORMAL - Vitals Vital signs reviewed: Yes - General General: Alert and oriented X 3, No acute distress, Well developed/nourished - HEENT HEENT: PERRL, Moist mucous membranes - Neck Neck: Supple, no meningeal sign - Cardiac Cardiac: RRR, Strong equal pulses - Respiratory Respiratory: No respiratory distress, Clear bilaterally - Abdomen Abdomen: Soft, Non tender, Non distended - Derm Derm: Warm and dry - Extremities Extremities: No edema - Neuro Neuro: Alert and oriented X 3 - Psych Psych: Normal mood, Normal affect Results - Vitals Vitals: Vital Signs - 24 hr 10/21/20 10/21/20 10/21/20 11:30 12:00 12:30 Temperature 37.3 C 37.0 C Heart Rate 90 93 94 Respiratory 23 18 13 Rate Blood Pressure 123/84 H 105/80 105/81 H O2 Saturation 95 95 94 10/21/20 10/21/20 13:00 13:19 Temperature 37.1 C 37.2 C Heart Rate 94 95 Respiratory 16 16 Rate Blood Pressure 92/75 127/82 H O2 Saturation 99 96 Oxygen O2 Source Room air - EKG (time done) 1135 Rate: Rate (enter#) (89) Rhythm: NSR [place]: Normal Intervals: Normal [place] QRS: Normal Ischemia: Normal ST segments - Labs Labs: Laboratory Tests 10/21/20 10/21/20 10/21/20 12:06 12:06 12:06 WBC 8.0 RBC 4.69 L Hgb 14.7 Hct 44.1 MCV 94.0 MCH 31.3 H MCHC 33.3 RDW 13.0 Plt Count 155 MPV 10.0 Neut # (Auto) 5.8 Lymph # (Auto) 1.5 [place] # (Auto) 0.6 Eos # (Auto) 0.1 Baso # (Auto) 0.1 Absolute Nucleated RBC 0.00 Nucleated RBC % 0.0 Sodium 139 Potassium 4.0 Chloride 108 Carbon Dioxide 20 L Anion Gap 11.0 BUN 16 Creatinine 0.8 Estimated GFR (MDRD) 95 Glucose 98 Calcium 9.0 Total Bilirubin 1.5 H AST 17 ALT 17 Alkaline Phosphatase 39 L Troponin I High Sens 6.5 Total Protein 6.9 Albumin 4.4 Globulin 2.5 Albumin/Globulin Ratio 1.8 Lipase 24 - Rads (name of study) cxr Radiology: Final report received, EMP read contemporaneously, See rad report (No acute cardiopulmonary abnormality. ) PD MEDICAL DECISION MAKING - ED course Complexity details: reviewed results, re-evaluated patient, considered differential, d/w patient ED course: Patient with an episode of SVT prior to arrival. Resolved with adenosine with EMS. Asymptomatic here. No acute findings on laboratory testing, EKG or chest x-ray. We will have him follow-up with his doctor for further care. Patient counseled regarding signs and symptoms for which I believe and urgent re- evaluation would be necessary. Patient with good understanding of and agreement to plan and is comfortable going home at this time This document was made in part using voice recognition software. While efforts are made to proofread this document, sound alike and grammatical errors may occur. Departure - Departure Disposition: 01 Home, Self Care Clinical Impression: SVT (supraventricular tachycardia) Condition: Good Instructions: ED Tachycardia Pat PSVT Follow-Up: Your,doctor in 1 week [Other] Comments: You had an episode of SVT today, also known as supraventricular tachycardia. This resolved with adenosine. Your testing does not show any acute abnorma lities. Please follow-up with your doctor for further care. Return if you worsen. Discharge Date/Time: 10/21/20 13:21
[2020-10-21 12:10] LABS: BASOPHILS # (AUTO) 0.1 10^3/uL (0.0-0.1); BASOPHILS % (AUTO) 0.8 %; EOSINOPHILS # (AUTO) 0.1 10^3/uL (0.0-0.7); EOSINOPHILS % (AUTO) 0.6 %; HCT - HEMATOCRIT 44.1 % (42.0-52.0); HGB - HEMOGLOBIN 14.7 g/dL (14.0-18.0); LYMPHOCYTES # (AUTO) 1.5 10^3/uL (1.5-3.5); LYMPHOCYTES % (AUTO) 18.8 %; MEAN CORPUSCULAR HEMOGLOBIN 31.3 pg (27.0-31.0); MEAN CORPUSCULAR HGB CONC 33.3 g/dL (32.0-36.0); MONOCYTES # (AUTO) 0.6 10^3/uL (0.0-1.0); MONOCYTES % (AUTO) 6.9 %; NEUTROPHILS # (AUTO) 5.8 10^3/uL (1.5-6.6); NEUTROPHILS % (AUTO) 72.6 %; PLT - PLATELET COUNT 155 10^3/uL (130-450); RED BLOOD COUNT 4.69 10^6/uL (4.70-6.10)
[2020-10-21 12:25] LABS: ALBUMIN 4.4 g/dL (3.2-5.5); ALBUMIN/GLOBULIN RATIO 1.8 (1.0-2.2); BILIRUBIN,TOTAL 1.5 mg/dL (0.2-1.0); CREATININE 0.8 mg/dL (0.6-1.2); TOTAL PROTEIN 6.9 g/dL (6.7-8.2)
--- NOTE | 2020-10-21 12:35 | XRAY Report ---
PROCEDURE: Chest 1 View X-Ray INDICATIONS: Chest Pain TECHNIQUE: One view of the chest was acquired. COMPARISON: Chest radiographs 08/16/2020 FINDINGS: Surgical changes and devices: None. Lungs and pleura: No pleural effusions or pneumothorax. Lungs are clear. Small retrocardiac densit y most likely represents a small hiatal hernia. Mediastinum: Mediastinal contours appear normal. Heart size is normal. Bones and chest wall: No suspicious bony lesions. Overlying soft tissues appear unremarkable. Dege nerative changes are seen in the spine. IMPRESSION: No acute cardiopulmonary abnormality. Reviewed by: Justin Truong MD on 10/21/2020 12:34 PM PDT Approved by: Justin Truong MD on 10/21/2020 12:34 PM PDT Station ID: [id number]
[2020-10-21 13:21] VITALS: BP 127/82
== END 2020-10-21 13:21 | disposition home or self-care (01) ==
LOC: EDUNIT# → ED 11:23
DX: I47.1 Supraventricular tachycardia (principal); F17.200 Nicotine dependence, unspecified, uncomplicated; I10 Essential (primary) hypertension
CPT/HCPCS: 36415; 80053; 83690; 84484; 85025; 93005; 99284

== ENCOUNTER 2020-10-30 05:05 | Outpatient (CLI) | payer MEDICARE, OTHER | END 2020-10-30 05:06 | disposition critical access hospital (66) | LOC: EMS 05:05 | DX: R00.0 Tachycardia, unspecified (principal); R42 Dizziness and giddiness | CPT/HCPCS: A0425; A0429 ==

== ENCOUNTER 2020-10-30 05:26 | Emergency (ER) | payer MEDICARE, OTHER ==
--- NOTE | 2020-10-30 05:57 | ED Physician Documentation ---
History of Present Illness - Stated complaint Stated Complaint: RAPID HEART RATE, LIGHTHEADED - Chief complaint Chief Complaint: Cardiac - History obtained from History obtained from: Patient - Additonal information Additional information: 70-year-old man with past medical history of Parkinson's, hyperlipidemia, SVT, depression, Presents after waking from sleep with left arm pain lasting about 10 seconds, 3 out of 10, aching, localized to the arm and nonradiating, also with sensation of lightheadedness and "energy in the chest. Patient was walking around in his legs became uncoordinated after couple of minutes. The palpitations lasted about 30 minutes until EMS arrived and then started to fade. He is still lightheaded. Patient felt normal yesterday but states that he did have an episode of lightheadedness a week ago during which he came to the emergency department and was given treatment for SVT. He denies fevers, chest pain, shortness of breath, cough, abdominal pain. Review of Systems Ten Systems: 10 systems reviewed and negative Constitutional: denies: Fever, Chills Cardiac: reports: Palpitations. denies: Chest pain / pressure GI: denies: Nausea Musculoskeletal: reports: Extremity pain Neurologic: reports: Other (lightheadedness, uncoordinated ambulation) PD PAST MEDICAL HISTORY - Past Medical History Past Medical History: Yes Cardiovascular: Hypertension Respiratory: None Neuro: Parkinson's, Other Endocrine/Autoimmune: None GI: None : Kidney stones HEENT: None Psych: None Musculoskeletal: None Derm: None - Past Surgical History Past Surgical History: Yes - Present Medications Home Medications: Ambulatory Orders Medication Instructions Recorded Confirmed Carbidopa/Levodopa 25/100 [Sinemet 2 tab PO .QAM 08/27/18 08/16/20 25 mg/100 mg] Sertraline [Zoloft] 25 mg PO DAILY 08/27/18 08/16/20 Simvastatin 10 mg PO DAILY PM 08/27/18 08/16/20 Ascorbic Acid [Vitamin C] 500 mg PO DAILY PRN 09/04/18 08/16/20 Cinnamon Bark [Cinnamon] 1,000 mg PO DAILY PRN MDD 09/04/18 08/16/20 .supplement Coq10 Supplement 200 mg PO DAILY PRN 09/04/18 08/16/20 Multivitamin [Multivitamins] 1 cap PO DAILY PRN 09/04/18 08/16/20 Vitamin B12 1,000 mg PO DAILY PRN 09/04/18 08/16/20 Celecoxib [CeleBREX] 100 mg PO BID 08/16/20 08/16/20 Riluzole [Rilutek] 50 mg PO DAILY 08/16/20 08/16/20 - Allergies Allergies/Adverse Reactions: Allergies Allergy/AdvReac Type Severity Reaction Status Date / Time No Known Drug Allergies Allergy Verified 10/30/20 05:32 - Social History Does the pt smoke?: Yes Smoking Status: Current every day smoker Does the pt drink ETOH?: No Does the pt have substance abuse?: No - Immunizations Immunizations are current?: Yes - POLST Patient has POLST: Yes PD ED PE NORMAL - Vitals Vital signs reviewed: Yes - General General: Alert and oriented X 3, No acute distress, Well developed/nourished - HEENT HEENT: Atraumatic, PERRL, EOMI - Neck Neck: Supple, no meningeal sign - Cardiac Cardiac: RRR - Respiratory Respiratory: No respiratory distress, Clear bilaterally - Abdomen Abdomen: Non tender, Non distended - Derm Derm: Normal color, Warm and dry - Extremities Extremities: No deformity, Normal ROM s pain - Neuro Neuro: Alert and oriented X 3, 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 cogwheel rigidity) - Psych Psych: Normal mood, Normal affect Results - Vitals Vitals: Vital Signs - 24 hr 10/30/20 10/30/20 05:32 05:35 Temperature 36.5 C 36.5 C Heart Rate 78 74 Respiratory 16 16 Rate Blood Pressure 128/95 H 128/95 H O2 Saturation 94 94 Oxygen O2 Source Room air - EKG (time done) 0532 Rate: Rate (enter#) (76) Rhythm: NSR [place]: Normal Intervals: Normal [place] QRS: Normal Ischemia: Normal ST segments - Labs Labs: Laboratory Tests 10/30/20 10/30/20 10/30/20 06:06 06:06 06:06 WBC 5.8 RBC 4.65 L Hgb 14.5 Hct 43.2 MCV 92.9 MCH 31.2 H MCHC 33.6 RDW 13.1 Plt Count 154 MPV 9.9 Neut # (Auto) 3.8 Lymph # (Auto) 1.5 [place] # (Auto) 0.4 Eos # (Auto) 0.1 Baso # (Auto) 0.1 Absolute Nucleated RBC 0.00 Nucleated RBC % 0.0 Sodium 137 Potassium 3.8 Chloride 105 Carbon Dioxide 23 Anion Gap 9.0 BUN 13 Creatinine 0.6 Estimated GFR (MDRD) 133 Glucose 107 H Calcium 9.2 Total Bilirubin 1.7 H AST 19 ALT 19 Alkaline Phosphatase 40 L Troponin I High Sens 7.4 Total Protein 6.8 Albumin 4.3 Globulin 2.5 Albumin/Globulin Ratio 1.7 Lipase 24 PD MEDICAL DECISION MAKING - ED course ED course: 70-year-old man presents for evaluation of lightheadedness, left arm pain, and palpitations. His vital signs are normal in the emergency department as is his physical exam with the exception of chronic parkinsonian symptoms. EKG noncontributory. Will obtain lab work and reevaluate. Labwork and CXR noncontributory. patient states his symptoms have completely resolved. Strict return precautions discussed. will plan to d/c home with prompt f[facility] Christianson. Departure - Departure Disposition: 01 Home, Self Care Clinical Impression: Left arm pain, Lightheadedness, Palpitations Condition: Good Instructions: Heart Palpitations Comments: You were seen in the emergency department for evaluation of dizziness, left arm pain, and palpitations. Your chest x-ray, EKG, lab work, vital signs, and physical exam did not show any emergent findings right now. You should return immediately if you have any new or worsening symptoms or have other concerns. Plan to follow-up with Dr. Christianson today. Make an appointment this week for further evaluation.
[2020-10-30 06:08] LABS: BASOPHILS # (AUTO) 0.1 10^3/uL (0.0-0.1); BASOPHILS % (AUTO) 1.4 %; EOSINOPHILS # (AUTO) 0.1 10^3/uL (0.0-0.7); EOSINOPHILS % (AUTO) 0.9 %; HCT - HEMATOCRIT 43.2 % (42.0-52.0); HGB - HEMOGLOBIN 14.5 g/dL (14.0-18.0); LYMPHOCYTES # (AUTO) 1.5 10^3/uL (1.5-3.5); LYMPHOCYTES % (AUTO) 25.1 %; MEAN CORPUSCULAR HEMOGLOBIN 31.2 pg (27.0-31.0); MEAN CORPUSCULAR HGB CONC 33.6 g/dL (32.0-36.0); MEAN CORPUSCULAR VOLUME 92.9 fL (80.0-94.0); MEAN PLATELET VOLUME 9.9 fL (7.4-11.4); MONOCYTES # (AUTO) 0.4 10^3/uL (0.0-1.0); MONOCYTES % (AUTO) 6.8 %; NEUTROPHILS # (AUTO) 3.8 10^3/uL (1.5-6.6); NEUTROPHILS % (AUTO) 65.8 %; PLT - PLATELET COUNT 154 10^3/uL (130-450); RED BLOOD COUNT 4.65 10^6/uL (4.70-6.10); RED CELL DISTRIBUTION WIDTH 13.1 % (12.0-15.0); WHITE BLOOD COUNT 5.8 x10^3/uL (4.8-10.8)
[2020-10-30 06:20] LABS: ALBUMIN 4.3 g/dL (3.2-5.5); ALBUMIN/GLOBULIN RATIO 1.7 (1.0-2.2); BILIRUBIN,TOTAL 1.7 mg/dL (0.2-1.0); CALCIUM 9.2 mg/dL (8.5-10.3); CREATININE 0.6 mg/dL (0.6-1.2); POTASSIUM 3.8 mmol/L (3.5-5.0); TOTAL PROTEIN 6.8 g/dL (6.7-8.2)
[2020-10-30 07:03] VITALS: BP 124/93
--- NOTE | 2020-10-30 07:55 | XRAY Report ---
PROCEDURE: Chest 1 View X-Ray INDICATIONS: Chest pain TECHNIQUE: One view of the chest was acquired. COMPARISON: 10/21/2020, 08/16/2020 FINDINGS: Surgical changes and devices: None. Lungs and pleura: An incomplete inspiratory result is noted, with low lung volumes and crowding of th e vascular markings. No focal infiltrates are seen. No large pneumothorax or large pleural effusion c an be seen. Mediastinum: The aorta is prominent and tortuous. The cardiac contours are within normal limits. Bones and chest wall: No suspicious bony lesions. Overlying soft tissues appear unremarkable. IMPRESSION: Portable chest within normal limits for age. Note: No significant discrepancy from the preliminary report. Reviewed by: Jordan Lang MD on 10/30/2020 6:54 AM BARB Approved by: Jordan Lang MD on 10/30/2020 6:54 AM BARB Station ID: [id number]
== END 2020-10-30 07:50 | disposition home or self-care (01) ==
LOC: EDUNIT# → ED 05:26
DX: M79.602 Pain in left arm (principal); R42 Dizziness and giddiness; R00.2 Palpitations; F17.200 Nicotine dependence, unspecified, uncomplicated
CPT/HCPCS: 36415; 80053; 83690; 84484; 85025; 93005; 99284

== ENCOUNTER 2020-11-19 11:33 | Outpatient (CLI) | payer MEDICARE, OTHER | END 2020-11-19 23:59 | disposition critical access hospital (66) | LOC: EMS 11:33 | DX: F45.8 Other somatoform disorders (principal) | CPT/HCPCS: A0425; A0429 ==

== ENCOUNTER 2020-11-19 11:57 | Emergency (ER) | payer MEDICARE, OTHER ==
--- NOTE | 2020-11-19 12:18 | ED Physician Documentation ---
History of Present Illness - Stated complaint Stated Complaint: FOB - History obtained from History obtained from: Patient, EMS - Additonal information Additional information: 70-year-old gentleman with history of reflux issues, Parkinson's, hyperlipidemia, SVT, depression was eating a hamburger, a small hamburger and felt like it got stuck around at the sternal notch. He feels better now but still irritated. He was able to tolerate liquids on the way here for EMS. No breathing difficulty. Review of Systems Constitutional: reports: Reviewed and negative Eyes: reports: Reviewed and negative Ears: reports: Reviewed and negative Nose: reports: Reviewed and negative PD PAST MEDICAL HISTORY - Past Medical History Cardiovascular: Hypertension Respiratory: None Neuro: Parkinson's, Other Endocrine/Autoimmune: None GI: None : Kidney stones HEENT: None Psych: None Musculoskeletal: None Derm: None - Past Surgical History Past Surgical History: Yes - Present Medications Home Medications: Ambulatory Orders Medication Instructions Recorded Confirmed Carbidopa/Levodopa 25/100 [Sinemet 2 tab PO .QAM 08/27/18 08/16/20 25 mg/100 mg] Sertraline [Zoloft] 25 mg PO DAILY 08/27/18 08/16/20 Simvastatin 10 mg PO DAILY PM 08/27/18 08/16/20 Ascorbic Acid [Vitamin C] 500 mg PO DAILY PRN 09/04/18 08/16/20 Cinnamon Bark [Cinnamon] 1,000 mg PO DAILY PRN MDD 09/04/18 08/16/20 .supplement Coq10 Supplement 200 mg PO DAILY PRN 09/04/18 08/16/20 Multivitamin [Multivitamins] 1 cap PO DAILY PRN 09/04/18 08/16/20 Vitamin B12 1,000 mg PO DAILY PRN 09/04/18 08/16/20 Celecoxib [CeleBREX] 100 mg PO BID 08/16/20 08/16/20 Riluzole [Rilutek] 50 mg PO DAILY 08/16/20 08/16/20 Omeprazole 40 mg PO DAILY #30 cap 11/19/20 - Allergies Allergies/Adverse Reactions: Allergies Allergy/AdvReac Type Severity Reaction Status Date / Time No Known Drug Allergies Allergy Verified 11/19/20 12:12 - Social History Does the pt smoke?: Yes Smoking Status: Current every day smoker Does the pt drink ETOH?: No Does the pt have substance abuse?: No - Immunizations Immunizations are current?: Yes - POLST Patient has POLST: Yes PD ED PE NORMAL - Vitals Vital signs reviewed: Yes - General General: Alert and oriented X 3, No acute distress, Other (Significant tremor and balance problems which are not new per him.) - HEENT HEENT: PERRL, EOMI, Pharynx benign - Neck Neck: Supple, no meningeal sign, No bony TTP - Neuro Neuro: Alert and oriented X 3, Normal speech - Psych Psych: Normal mood, Normal affect Results - Vitals Vitals: Vital Signs - 24 hr 11/19/20 12:18 Temperature 36.8 C Heart Rate 93 Respiratory 18 Rate Blood Pressure 126/97 H O2 Saturation 96 Oxygen O2 Source Room air PD MEDICAL DECISION MAKING - ED course ED course: 70-year-old gentleman with history of reflux presents with what sounds like 2 episodes of esophageal foreign body in short order. It has already resolved here. His phonation is normal and he is tolerating liquids. Discussed adding a PPI and soft mechanical diet pending follow-up with his physician to consider GI referral. Departure - Departure Disposition: 01 Home, Self Care Clinical Impression: Esophageal obstruction due to food impaction Condition: Good Record reviewed to determine appropriate education?: Yes Instructions: ED Diet Soft, ED Foreign Body Esophageal Rslv Prescriptions: Omeprazole 40 mg PO DAILY #30 cap Comments: I am starting you on an antiacid medication which you should take pending follow-up with your physician. You should follow-up with your physician, next available appointment and discuss referral to gastroenterology or surgery for upper endoscopy. Until that is done you should eat a "soft mechanical" diet, instructions enclosed but the most important thing is to avoid fruit/meat olinda modi.
[2020-11-19 12:21] VITALS: BP 126/97
== END 2020-11-19 12:34 | disposition home or self-care (01) ==
LOC: EDUNIT# → ED 11:57 → SUPCPDRO 11:57 → ED 12:34
DX: T18.128A Food in esophagus causing other injury, initial encounter (principal); X58.XXXA Exposure to other specified factors, initial encounter; K21.9 Gastro-esophageal reflux disease without esophagitis; I10 Essential (primary) hypertension; G20 Parkinson's disease; E78.5 Hyperlipidemia, unspecified; F17.200 Nicotine dependence, unspecified, uncomplicated
CPT/HCPCS: 99283

== ENCOUNTER 2021-09-01 04:57 | Outpatient (CLI) | payer MEDICARE, OTHER | END 2021-09-01 04:58 | disposition EMS.NT | LOC: EMS 04:57 | DX: Z03.89 Encounter for observation for other suspected diseases and conditions ruled out (principal) ==

== ENCOUNTER 2021-09-01 05:39 | Outpatient (CLI) | payer MEDICARE, OTHER | END 2021-09-01 05:40 | disposition critical access hospital (66) | LOC: EMS 05:39 | DX: M25.562 Pain in left knee (principal); M25.561 Pain in right knee; R42 Dizziness and giddiness | CPT/HCPCS: A0425; A0429 ==

== ENCOUNTER 2021-09-01 05:58 | Emergency (ER) | payer MEDICARE, OTHER ==
[2021-09-01 06:44] LABS: BASOPHILS # (AUTO) 0.1 10^3/uL (0.0-0.1); EOSINOPHILS # (AUTO) 0.1 10^3/uL (0.0-0.7); EOSINOPHILS % (AUTO) 1.1 %; HCT - HEMATOCRIT 44.7 % (42.0-52.0); HGB - HEMOGLOBIN 14.6 g/dL (14.0-18.0); LYMPHOCYTES % (AUTO) 15.8 %; MEAN CORPUSCULAR HEMOGLOBIN 30.9 pg (27.0-31.0); MEAN CORPUSCULAR HGB CONC 32.7 g/dL (32.0-36.0); MEAN CORPUSCULAR VOLUME 94.5 fL (80.0-94.0); MEAN PLATELET VOLUME 10.2 fL (7.4-11.4); MONOCYTES # (AUTO) 0.4 10^3/uL (0.0-1.0); MONOCYTES % (AUTO) 6.7 %; NEUTROPHILS # (AUTO) 4.6 10^3/uL (1.5-6.6); NEUTROPHILS % (AUTO) 75.2 %; PLT - PLATELET COUNT 143 10^3/uL (130-450); RED BLOOD COUNT 4.73 10^6/uL (4.70-6.10); RED CELL DISTRIBUTION WIDTH 13.2 % (12.0-15.0); WHITE BLOOD COUNT 6.1 x10^3/uL (4.8-10.8)
[2021-09-01 06:59] LABS: ALBUMIN 4.1 g/dL (3.2-5.5); ALBUMIN/GLOBULIN RATIO 1.6 (1.0-2.2); BILIRUBIN,TOTAL 1.1 mg/dL (0.2-1.0); CALCIUM 9.2 mg/dL (8.5-10.3); CREATININE 0.7 mg/dL (0.6-1.2); POTASSIUM 3.8 mmol/L (3.5-5.0); TOTAL PROTEIN 6.7 g/dL (6.7-8.2)
[2021-09-01 07:08] LABS: BILIRUBIN,URINE NEGATIVE (NEGATIVE); GLUCOSE, URINE (UA) NEGATIVE (NEGATIVE); KETONES,URINE (UA) NEGATIVE (NEGATIVE); LEUKOCYTE ESTERASE, URINE NEGATIVE (NEGATIVE); NITRITE,URINE NEGATIVE (NEGATIVE); OCCULT BLOOD,URINE MODERATE (NEGATIVE); PH,URINE 6.5 PH (5.0-7.5); PROTEIN,URINE NEGATIVE (NEGATIVE); UROBILINOGEN,URINE 1 (NORMAL) E.U./dL (NORMAL)
--- NOTE | 2021-09-01 07:21 | ED Physician Documentation ---
PD HPI Fall - Stated complaint Stated Complaint: GLF - Chief complaint Chief Complaint: Trauma Ext - History obtained from History obtained from: Patient, EMS - Additional information Additional information: 71-year-old gentleman was with Parkinson's and dementia reportedly kind of collapsed due to weak legs transferring from a lift chair this morning. Initially had some knee pain but now that is gone. He has no current complaints. Lives at home with his . She is not at the bedside on initial evaluation and I left voicemails on both phone numbers on the chart without answer immediately on initial evaluation. Review of Systems Unable to obtain: Confused PD PAST MEDICAL HISTORY - Past Medical History Cardiovascular: Hypertension Respiratory: None Neuro: Parkinson's, Other Endocrine/Autoimmune: None GI: None : Kidney stones HEENT: None Psych: None Musculoskeletal: None Derm: None - Past Surgical History Past Surgical History: Yes - Present Medications Home Medications: Ambulatory Orders Medication Instructions Recorded Confirmed Carbidopa/Levodopa 25/100 [Sinemet 2 tab PO BID 08/27/18 11/19/20 25 mg/100 mg] Sertraline [Zoloft] 25 mg PO DAILY 08/27/18 11/19/20 Simvastatin 10 mg PO DAILY PM 08/27/18 11/19/20 Ascorbic Acid [Vitamin C] 500 mg PO DAILY PRN 09/04/18 11/19/20 Multivitamin [Multivitamins] 1 cap PO DAILY 09/04/18 11/19/20 Celecoxib [CeleBREX] 100 mg PO BID 08/16/20 11/19/20 Riluzole [Rilutek] 50 mg PO DAILY 08/16/20 11/19/20 Omeprazole 40 mg PO DAILY #30 cap 11/19/20 - Allergies Allergies/Adverse Reactions: Allergies Allergy/AdvReac Type Severity Reaction Status Date / Time No Known Drug Allergies Allergy Verified 11/19/20 12:12 - Social History Does the pt smoke?: Yes Smoking Status: Current every day smoker Does the pt drink ETOH?: No Does the pt have substance abuse?: No - Immunizations Immunizations are current?: Yes - POLST Patient has POLST: Yes PD ED PE NORMAL - Vitals Vital signs reviewed: Yes - General General: No acute distress, Well developed/nourished, Other (He is alert and oriented to person and place but not time. He does remember the fall this morning.) - HEENT HEENT: PERRL, EOMI - Neck Neck: Supple, no meningeal sign, No bony TTP - Cardiac Cardiac: RRR, No murmur - Respiratory Respiratory: No respiratory distress, Clear bilaterally - Abdomen Abdomen: Normal bowel sounds, Soft, Non tender - Back Back: No CVA TTP, No spinal TTP - Derm Derm: Normal color, Warm and dry - Neuro Neuro: Other (Parkinsonian tremor with cogwheel rigidity in all 4 extremities. Grossly normal strength throughout all 4 extremities.) - Psych Psych: Normal mood, Normal affect Results - Vitals Vitals: Vital Signs - 24 hr 09/01/21 06:09 Temperature 36.9 C Heart Rate 83 Respiratory 18 Rate Blood Pressure 137/98 H O2 Saturation 94 Oxygen O2 Source Room air - Labs Labs: Laboratory Tests 09/01/21 09/01/21 09/01/21 06:40 06:40 06:55 WBC 6.1 RBC 4.73 Hgb 14.6 Hct 44.7 MCV 94.5 H MCH 30.9 MCHC 32.7 RDW 13.2 Plt Count 143 MPV 10.2 Neut # (Auto) 4.6 Lymph # (Auto) 1.0 L [place] # (Auto) 0.4 Eos # (Auto) 0.1 Baso # (Auto) 0.1 Absolute Nucleated RBC 0.00 Nucleated RBC % 0.0 Sodium 139 Potassium 3.8 Chloride 107 Carbon Dioxide 25 Anion Gap 7.0 BUN 16 Creatinine 0.7 Estimated GFR (MDRD) 111 Glucose 97 Calcium 9.2 Total Bilirubin 1.1 H AST 18 ALT 18 Alkaline Phosphatase 51 Total Protein 6.7 Albumin 4.1 Globulin 2.6 Albumin/Globulin Ratio 1.6 Lipase 26 Urine Color DARK YELLOW Urine Clarity CLEAR Urine pH 6.5 Ur Specific [place] 1.015 Urine Protein NEGATIVE Urine Glucose (UA) NEGATIVE Urine Ketones NEGATIVE Urine Occult Blood MODERATE H Urine Nitrite NEGATIVE Urine Bilirubin NEGATIVE Urine Urobilinogen 1 (NORMAL) Ur Leukocyte Esterase NEGATIVE Urine RBC 6-10 H Urine WBC 0-3 Ur Squamous Epith Cells FEW Squamous Urine Bacteria Few Ur Microscopic Review INDICATED Urine Culture Comments NOT INDICATED PD MEDICAL DECISION MAKING - ED course ED course: 71-year-old gentleman with Parkinson's is having progressive issues and initially the was not here but she arrived approximately 7:30 AM and we spoke at the bedside. He has had 2 falls in the last week. Both were because he was "in areas not cleared out for him" and he was not using his walker. Medically he does not seem to have anything serious, but would like to talk with social work as she needs some increased help versus placement. Initially they wanted to talk to social work but then were eager to go home. Social work did arrive and talk to them briefly prior to discharge. Departure - Departure Disposition: Home, Self Care Clinical Impression: Frequent falls Parkinsonism Qualifiers: Parkinsonism type: Parkinson's disease Qualified Code(s): G20 - Parkinson's disease Condition: Stable Record reviewed to determine appropriate education?: Yes Instructions: ED Dementia Caregiver Support Comments: Use the resources given to you by the social work to help arrange for increased care. Return for new or worsening symptoms. Also reasonable to follow-up with your neurologist, next available appointment.
[2021-09-01 07:22] LABS: BACTERIA,URINE Few /HPF (None Seen); CLARITY,URINE CLEAR (CLEAR); SQUAMOUS EPITHELIAL CELL,UR FEW Squamous (<= Few); WBC,URINE 0-3 /HPF (0-3)
[2021-09-01 09:42] VITALS: BP 130/91
== END 2021-09-01 09:53 | disposition home or self-care (01) ==
LOC: ED 05:58
DX: G20 Parkinson's disease (principal); F02.80 Dementia in other diseases classified elsewhere, unspecified severity, without behavioral disturbance, psychotic disturbance, mood disturbance, and anxiety; I10 Essential (primary) hypertension; F17.200 Nicotine dependence, unspecified, uncomplicated; Z91.81 History of falling
CPT/HCPCS: 36415; 80053; 81001; 81003; 83690; 85025; 87086; 99282; 99283

== ENCOUNTER 2021-12-22 12:18 | Outpatient (CLI) | payer MEDICARE, OTHER | END 2021-12-22 12:19 | disposition critical access hospital (66) | LOC: EMS 12:18 | DX: R13.10 Dysphagia, unspecified (principal); R11.10 Vomiting, unspecified | CPT/HCPCS: A0425; A0429 ==

== ENCOUNTER 2021-12-22 12:40 | Day surgery (SDC) | payer MEDICARE, OTHER ==
[2021-12-22] MEDS ORDERED: ONDANSETRON 4 MG/2 ML VIAL IVP STA (12:56)
[2021-12-22] MEDS ORDERED: GLUCAGON 1 MG/ML VIAL IVP STA (12:56)
[2021-12-22 13:17] LABS: BASOPHILS # (AUTO) 0.1 10^3/uL (0.0-0.1); BASOPHILS % (AUTO) 0.9 %; EOSINOPHILS # (AUTO) 0.1 10^3/uL (0.0-0.7); HGB - HEMOGLOBIN 14.4 g/dL (14.0-18.0); LYMPHOCYTES # (AUTO) 1.4 10^3/uL (1.5-3.5); LYMPHOCYTES % (AUTO) 20.7 %; MEAN CORPUSCULAR HEMOGLOBIN 31.2 pg (27.0-31.0); MEAN CORPUSCULAR HGB CONC 32.7 g/dL (32.0-36.0); MEAN CORPUSCULAR VOLUME 95.2 fL (80.0-94.0); MONOCYTES # (AUTO) 0.6 10^3/uL (0.0-1.0); MONOCYTES % (AUTO) 8.3 %; NEUTROPHILS # (AUTO) 4.7 10^3/uL (1.5-6.6); NEUTROPHILS % (AUTO) 67.8 %; PLT - PLATELET COUNT 168 10^3/uL (130-450); RED BLOOD COUNT 4.62 10^6/uL (4.70-6.10); RED CELL DISTRIBUTION WIDTH 13.1 % (12.0-15.0); WHITE BLOOD COUNT 6.9 x10^3/uL (4.8-10.8)
[2021-12-22 13:29] LABS: CALCIUM 9.2 mg/dL (8.5-10.3); CREATININE 0.6 mg/dL (0.6-1.2); POTASSIUM 4.4 mmol/L (3.5-5.0)
--- NOTE | 2021-12-22 14:08 | ED Physician Documentation ---
History of Present Illness - Stated complaint Stated Complaint: FOOD BOLUS - Chief complaint Chief Complaint: General - History obtained from History obtained from: Patient - Additonal information Additional information: Patient is a 71-year-old male with a history of Parkinson's and previous food impactions that have resolved without intervention presenting for evaluation of feeling a food impaction. Patient was eating a burrito with cup of hot dogs when he felt something get lodged in his chest. He has not been able to clear his secretions. He has has had previous ED visits for similar episodes in past years but either resolved on its own or with glucagon and has not had an EGD in the past. He does finally have a referral to a GI doctor but it is not scheduled until the beginning of January.Patient denies chest pain Or difficulty breathing. Review of Systems Constitutional: denies: Fever Nose: denies: Congestion Cardiac: denies: Chest pain / pressure Respiratory: denies: Dyspnea GI: reports: Vomiting. denies: Abdominal Pain : denies: Dysuria Musculoskeletal: denies: Back pain Neurologic: denies: Headache PD PAST MEDICAL HISTORY - Past Medical History Cardiovascular: Hypertension Respiratory: None Neuro: Parkinson's, Other Endocrine/Autoimmune: None GI: None : Kidney stones HEENT: None Psych: None Musculoskeletal: None Derm: None - Past Surgical History Past Surgical History: Yes - Present Medications Home Medications: Ambulatory Orders Medication Instructions Recorded Confirmed Sertraline [Zoloft] 25 mg PO BID 08/27/18 12/22/21 Simvastatin 10 mg PO BID 08/27/18 12/22/21 Ascorbic Acid [Vitamin C] 500 mg PO DAILY PRN 09/04/18 12/22/21 Multivitamin [Multivitamins] 1 cap PO DAILY 09/04/18 12/22/21 Celecoxib [CeleBREX] 100 mg PO BID 08/16/20 12/22/21 Riluzole [Rilutek] 50 mg PO BID 08/16/20 12/22/21 - Allergies Allergies/Adverse Reactions: Allergies Allergy/AdvReac Type Severity Reaction Status Date / Time No Known Drug Allergies Allergy Verified 11/19/20 12:12 - Social History Does the pt smoke?: Yes Smoking Status: Current every day smoker Does the pt drink ETOH?: No Does the pt have substance abuse?: No - Immunizations Immunizations are current?: Yes - POLST Patient has POLST: Yes PD ED PE NORMAL - General General: Alert and oriented X 3, No acute distress, Well developed/nourished, Other (Spitting into emesis bag) - HEENT HEENT: Atraumatic, Moist mucous membranes - Neck Neck: Supple, no meningeal sign - Cardiac Cardiac: RRR, Strong equal pulses, Other (No crepitus to neck or chest wall) - Respiratory Respiratory: No respiratory distress, Clear bilaterally - Abdomen Abdomen: Non tender, Non distended - Derm Derm: Warm and dry - Extremities Extremities: No edema - Neuro Neuro: Alert and oriented X 3 Results - Vitals Vitals: Vital Signs - 24 hr 12/22/21 12/22/21 12/22/21 13:17 16:01 16:05 Temperature 36.8 C 36.4 C L Heart Rate 75 95 108 H Respiratory 18 30 H 24 Rate Blood Pressure 134/90 H 163/105 H 164/103 H O2 Saturation 98 96 95 12/22/21 12/22/21 12/22/21 16:10 16:15 16:20 Temperature 36.6 C Heart Rate 105 H 104 H 106 H Respiratory 20 23 24 Rate Blood Pressure 154/103 H 161/102 H 151/94 H O2 Saturation 97 97 92 12/22/21 12/22/21 12/22/21 16:25 16:30 16:35 Temperature 36.6 C Heart Rate 109 H 105 H 105 H Respiratory 26 H 22 20 Rate Blood Pressure 167/111 H 166/117 H 142/96 H O2 Saturation 95 94 95 12/22/21 12/22/21 12/22/21 16:40 16:45 16:50 Temperature 36.4 C L Heart Rate 103 H 105 H 103 H Respiratory 21 23 21 Rate Blood Pressure 146/93 H 164/117 H 168/104 H O2 Saturation 93 93 94 12/22/21 12/22/21 12/22/21 17:02 17:15 17:30 Temperature 36.7 C 36.7 C Heart Rate 103 H 92 95 Respiratory 16 15 18 Rate Blood Pressure 141/88 H 130/91 H 141/93 H O2 Saturation 93 93 93 12/22/21 12/22/21 12/22/21 17:45 18:15 18:45 Temperature 37 C 37 C 36.9 C Heart Rate 103 H 100 108 H Respiratory 16 20 18 Rate Blood Pressure 139/99 H 167/111 H 141/84 H O2 Saturation 95 95 96 12/22/21 12/22/21 12/22/21 19:41 20:41 21:34 Temperature 36.8 C 36.9 C 36.6 C Heart Rate 108 H 110 H 90 Respiratory 18 18 18 Rate Blood Pressure 116/70 97/68 113/70 O2 Saturation 94 96 96 12/22/21 12/23/21 12/23/21 22:41 02:41 05:10 Temperature 36.6 C 36.9 C Heart Rate 103 H 79 77 Respiratory 19 18 18 Rate Blood Pressure 119/77 115/77 119/79 O2 Saturation 96 96 97 Oxygen O2 Source Room air - Labs Labs: Laboratory Tests 12/22/21 12/22/21 13:10 13:10 WBC 6.9 RBC 4.62 L Hgb 14.4 Hct 44.0 MCV 95.2 H MCH 31.2 H MCHC 32.7 RDW 13.1 Plt Count 168 MPV 10.0 Neut # (Auto) 4.7 Lymph # (Auto) 1.4 L [place] # (Auto) 0.6 Eos # (Auto) 0.1 Baso # (Auto) 0.1 Absolute Nucleated RBC 0.00 Nucleated RBC % 0.0 Sodium 143 Potassium 4.4 Chloride 107 Carbon Dioxide 29 Anion Gap 7.0 BUN 15 Creatinine 0.6 Estimated GFR (MDRD) 132 Glucose 91 Calcium 9.2 PD MEDICAL DECISION MAKING - ED course ED course: Patient presenting with symptoms of esophageal food impaction. Attempted IV glucagon And patient stated he had slightly felt better so attempted p.o. challenge with sips of water and soda which was unsuccessful. Patient started to vomit. Patient did not feel that his infection had cleared. Discussed with general surgery on-call Dr. Harper who graciously agrees to consult on the patient for EGD. Departure - Departure Disposition: ED Transfer to [facility] Clinical Impression: Esophageal obstruction due to food impaction Condition: Stable Discharge Date/Time: 12/22/21 16:51
[2021-12-22] MEDS ORDERED: SUCCINYLCHOLINE 200 MG/10 ML VIAL ONE (15:06)
[2021-12-22] MEDS ORDERED: PROPOFOL 200 MG/20 ML VIAL IVP ONE (15:07)
--- NOTE | 2021-12-22 15:07 | HISTORY & PHYSICAL EXAMINATION ---
Chief Complaint - Chief Complaint Chief Complaint: food stuck History of Present Illness - History Obtained From Records Reviewed: yes History obtained from: pt Exam Limitations: none - History of Present Illness HPI Comment/Other: food stuck in esophagus 4 hours ago; hotdog. mild occasional trouble swallowing for over a year History - Past Medical History Cardiovascular: reports: Hypertension Respiratory: reports: None Neuro: reports: Parkinson's, Other Endocrine/Autoimmune: reports: None GI: reports: None : reports: Kidney stones HEENT: reports: None Psych: reports: None Musculoskeletal: reports: None Derm: reports: None MRSA Hx?: No - POLST Patient has POLST: Yes Meds/Allgy - Home Medications Home Medications: Ambulatory Orders Medication Instructions Recorded Confirmed Carbidopa/Levodopa 25/100 [Sinemet 2 tab PO BID 08/27/18 11/19/20 25 mg/100 mg] Sertraline [Zoloft] 25 mg PO DAILY 08/27/18 11/19/20 Simvastatin 10 mg PO DAILY PM 08/27/18 11/19/20 Ascorbic Acid [Vitamin C] 500 mg PO DAILY PRN 09/04/18 11/19/20 Multivitamin [Multivitamins] 1 cap PO DAILY 09/04/18 11/19/20 Celecoxib [CeleBREX] 100 mg PO BID 08/16/20 11/19/20 Riluzole [Rilutek] 50 mg PO DAILY 08/16/20 11/19/20 Omeprazole 40 mg PO DAILY #30 cap 11/19/20 - Allergies Allergies/Adverse Reactions: Allergies Allergy/AdvReac Type Severity Reaction Status Date / Time No Known Drug Allergies Allergy Verified 11/19/20 12:12 Review of Systems - Other Findings Other Findings: parkinsons. states health is otherwise good. denies heart or lung problems 1o pt ros as above otherwise unremarkable Exam - Vital Signs Reviewed Vital Signs: Yes Vital Signs: Vital Signs x48h Temp Pulse Resp BP Pulse Ox 12/22/21 13:17 36.8 C 75 18 134/90 H 98 - Physical Exam General Appearance: positive: Alert, Mild distress, Other (mild distress from food impaction, not able to swallow. coughing.) Eyes Bilateral: positive: PERRL, EOMI ENT: positive: No signs of dehydration Neck: positive: No JVD, Trachea midline Respiratory: positive: No respiratory distress, Breath sounds nml Cardiovascular: positive: Regular rate & rhythm Abdomen: positive: Non-tender, No distention Neurologic/Psychiatric: positive: Oriented x3 Conclusion/Plan - Problem List (1) Esophageal obstruction due to food impaction Conclusion/Plan: plan egd and attempt to remove/ clear food impaction. parq held and consent obtained - Lab Results Fish Bones: 12/22/21 13:10 12/22/21 13:10
[2021-12-22] MEDS ORDERED: MORPHINE 2 MG/ML CARPUJECT IVP PRN (15:08)
[2021-12-22] MEDS ORDERED: ONDANSETRON 4 MG/2 ML VIAL IVP PRN (15:08)
[2021-12-22] MEDS ORDERED: fentaNYL 100 MCG/2 ML VIAL IVP PRN (15:08)
[2021-12-22] MEDS ORDERED: NALOXONE 0.4 MG/ML VIAL IVP PRN (15:08)
[2021-12-22] MEDS ORDERED: ATROPINE ABBOJECT 1 MG/10 ML SYRINGE IVP PRN (15:08)
[2021-12-22] MEDS ORDERED: HYDROmorphone 0.5 MG/0.5 ML SYRINGE IVP PRN (15:08)
--- NOTE | 2021-12-22 15:08 | ANESTHESIA ---
Pre-Anesthesia VS, & Labs - Diagnosis food impaction - Procedure EGD Vital Signs: Temp Pulse Resp BP Pulse Ox O2 Flow Rate 36.8 C 75 18 134/90 H 98 12/22/21 13:17 12/22/21 13:17 12/22/21 13:17 12/22/21 13:17 12/22/21 13:17 Height: 6 ft Weight (kg): 72.575 kg Body Mass Index: 21.7 BMI Classification: Normal - NPO Other (food at noon) - Lab Results Current Lab Results: Laboratory Tests 12/22/21 13:10: Sodium 143, Potassium 4.4, Chloride 107, Carbon Dioxide 29, Anion Gap 7.0, BUN 15, Creatinine 0.6, Estimated GFR (MDRD) 132, Glucose 91, Calcium 9.2 12/22/21 13:10: WBC 6.9, RBC 4.62 L, Hgb 14.4, Hct 44.0, MCV 95.2 H, MCH 31.2 H, MCHC 32.7, RDW 13.1, Plt Count 168, MPV 10.0, Neut # (Auto) 4.7, Lymph # (Auto) 1.4 L, [place] # (Auto) 0.6, Eos # (Auto) 0.1, Baso # (Auto) 0.1, Absolute Nucleated RBC 0.00, Nucleated RBC % 0.0 Lab results reviewed: Yes Fish Bones: 12/22/21 13:10 12/22/21 13:10 Home Medications and Allergies Carbidopa/Levodopa 25/100 [Sinemet 25 mg/100 mg] 2 tab PO BID 08/27/18 Sertraline [Zoloft] 25 mg PO DAILY 08/27/18 Simvastatin 10 mg PO DAILY PM 08/27/18 Ascorbic Acid [Vitamin C] 500 mg PO DAILY PRN 09/04/18 Multivitamin [Multivitamins] 1 cap PO DAILY 09/04/18 Celecoxib [CeleBREX] 100 mg PO BID 08/16/20 Riluzole [Rilutek] 50 mg PO DAILY 08/16/20 Allergies/Adverse Reactions: Allergies Allergy/AdvReac Type Severity Reaction Status Date / Time No Known Drug Allergies Allergy Verified 11/19/20 12:12 Anes History & Medical History - Anesthetic History Anesthesia Complications: reports: No previous complications - Medical History Cardiovascular: reports: Hypertension, Peripheral Vascular Disease (AAA) Pulmonary: reports: None Gastrointestinal: reports: Other (food impaction) Urinary: reports: Kidney stones Neuro: reports: Parkinson's, Other Musculoskeletal: reports: None Endocrine/Autoimmune: reports: None Blood Disorders: reports: None Skin: reports: None Smoking Status: Former smoker (quit 3 years ago) Psychosocial: reports: No issues indicated - Surgical History Urologic: reports: Ureterolithotomy (stones) Orthopedic: reports: Other (hand) Exam General: Alert, Oriented x3, Cooperative, No acute distress Dental: WNL Mouth Openin Fingerbreadth Neck Mobility: Normal Mallampati classification: II Thyromental Distance: 4-6 cm Mental/Cognitive Status: Alert/Oriented X3, Normal for patient Plan Anesthesia Type: General (RSI) Consent for Procedure(s) Verified and Reviewed: Yes Code Status: Attempt Resuscitation ASA classification: 3-Severe systemic disease Is this case an emergency?: Yes
[2021-12-22] MEDS ORDERED: fentaNYL 100 MCG/2 ML VIAL ONE (15:10)
[2021-12-22] MEDS ORDERED: LIDOCAINE-PF 2% 10 ML AMP SUBQ ONE (15:11)
[2021-12-22] MEDS ORDERED: ePHEDrine 50 MG/ML VIAL IVP ONE (15:50)
[2021-12-22] MEDS ORDERED: LACTATED RINGERS 1,000 ML IV SCH (16:00)
[2021-12-22] MEDS ORDERED: LACTATED RINGERS 1,000 ML IV ONE (16:01)
--- NOTE | 2021-12-22 16:25 | ANESTHESIA POST OP EVALUATION ---
Anesthesia Post Eval - Post Anesthesia Eval Vitals: Last Vital Signs Temp 36.4 C L 12/22/21 16:01 Pulse 108 H 12/22/21 16:05 Resp 24 12/22/21 16:05 BP 164/103 H 12/22/21 16:05 Pulse Ox 95 12/22/21 16:05 O2 Flow Rate CV Function Including HR & BP: Stable Pain Control: Satisfactory Nausea & Vomiting: Negative Mental Status: Patient Participates Respiratory Status: Airway Patent Hydration Status: Satisfactory Anesthesia Complications: None
[2021-12-22] MEDS: SERTRALINE 25 MG TABLET PO SCH (20:43)
[2021-12-22] MEDS: CELECOXIB 100 MG CAPSULE PO SCH (20:43)
[2021-12-23 08:48] VITALS: BP 118/80
[2021-12-23] MEDS: SERTRALINE 25 MG TABLET PO SCH (10:30)
[2021-12-23] MEDS: CELECOXIB 100 MG CAPSULE PO SCH (10:31)
== END 2021-12-23 10:50 | disposition home or self-care (01) ==
LOC: EDUNIT# → ED 12:40 → SDS 15:00 → MS2 16:49 → SDS 12-23 10:50
PROVIDERS: ATTEND Surgery
PROC: 0DB78ZX Excision of Stomach, Pylorus, Via Natural or Artificial Opening Endoscopic, Diagnostic (ICD-10-PCS; 2021-12-22)
PROC: 0DB38ZX Excision of Lower Esophagus, Via Natural or Artificial Opening Endoscopic, Diagnostic (ICD-10-PCS; 2021-12-22)
PROC: 0DB48ZX Excision of Esophagogastric Junction, Via Natural or Artificial Opening Endoscopic, Diagnostic (ICD-10-PCS; principal; 2021-12-22 15:00)
DX: T18.128A Food in esophagus causing other injury, initial encounter (principal); K29.70 Gastritis, unspecified, without bleeding; K22.2 Esophageal obstruction; I10 Essential (primary) hypertension; G20 Parkinson's disease; F17.200 Nicotine dependence, unspecified, uncomplicated
CPT/HCPCS: 36415; 43239; 43247; 80048; 85025; 96374; 99283; 99285; A9270; J0330; J7120

== ENCOUNTER 2022-09-25 06:45 | Outpatient (CLI) | payer MEDICARE, OTHER | END 2022-09-25 23:59 | disposition short-term general hospital (02) | LOC: EMS 06:45 | DX: I47.1 Supraventricular tachycardia (principal); I49.1 Atrial premature depolarization; R53.1 Weakness; R32 Unspecified urinary incontinence | CPT/HCPCS: A0425; A0427 ==

== ENCOUNTER 2022-12-25 08:00 | Outpatient (CLI) | payer MEDICARE, OTHER ==
[2022-12-25 20:00] LABS: BASOPHILS # (AUTO) 0.1 10^3/uL (0.0-0.1); BASOPHILS % (AUTO) 1.2 %; EOSINOPHILS # (AUTO) 0.2 10^3/uL (0.0-0.7); EOSINOPHILS % (AUTO) 2.6 %; HGB - HEMOGLOBIN 12.7 g/dL (14.0-18.0); LYMPHOCYTES # (AUTO) 1.8 10^3/uL (1.5-3.5); LYMPHOCYTES % (AUTO) 29.1 %; MEAN CORPUSCULAR HEMOGLOBIN 30.2 pg (27.0-31.0); MEAN CORPUSCULAR HGB CONC 32.6 g/dL (32.0-36.0); MEAN CORPUSCULAR VOLUME 92.9 fL (80.0-94.0); MEAN PLATELET VOLUME 10.4 fL (7.4-11.4); MONOCYTES # (AUTO) 0.5 10^3/uL (0.0-1.0); MONOCYTES % (AUTO) 8.6 %; NEUTROPHILS # (AUTO) 3.5 10^3/uL (1.5-6.6); NEUTROPHILS % (AUTO) 58.3 %; PLT - PLATELET COUNT 304 10^3/uL (130-450); RED CELL DISTRIBUTION WIDTH 14.2 % (12.0-15.0); WHITE BLOOD COUNT 6.1 x10^3/uL (4.8-10.8)
[2022-12-25 20:22] LABS: ALBUMIN 3.4 g/dL (3.2-5.5); ALBUMIN/GLOBULIN RATIO 1.2 (1.0-2.2); BILIRUBIN,TOTAL 0.4 mg/dL (0.2-1.0); CALCIUM 8.8 mg/dL (8.5-10.3); CREATININE 0.8 mg/dL (0.6-1.3); POTASSIUM 3.8 mmol/L (3.5-4.5); TOTAL PROTEIN 6.2 g/dL (6.4-8.9)
== END 2022-12-25 23:59 | disposition home or self-care (01) ==
LOC: LAB.R 08:00
PROVIDERS: ATTEND Registered Nurse
DX: I10 Essential (primary) hypertension (principal); D64.9 Anemia, unspecified
CPT/HCPCS: 80053; 85025

== ENCOUNTER 2023-05-03 08:05 | Outpatient (CLI) | payer MEDICARE, OTHER | END 2023-05-03 23:59 | disposition critical access hospital (66) | LOC: EMS 08:05 | DX: R13.10 Dysphagia, unspecified (principal); R53.1 Weakness; R03.0 Elevated blood-pressure reading, without diagnosis of hypertension; G20.A1 Parkinson's disease without dyskinesia, without mention of fluctuations | CPT/HCPCS: A0425; A0427 ==

== ENCOUNTER 2023-05-03 08:26 | Emergency (ER) | payer MEDICARE, OTHER ==
[2023-05-03 09:03] LABS: BASOPHILS # (AUTO) 0.1 10^3/uL (0.0-0.1); EOSINOPHILS # (AUTO) 0.1 10^3/uL (0.0-0.7); EOSINOPHILS % (AUTO) 1.3 %; HCT - HEMATOCRIT 37.8 % (42.0-52.0); LYMPHOCYTES % (AUTO) 13.1 %; MEAN CORPUSCULAR HEMOGLOBIN 29.9 pg (27.0-31.0); MEAN CORPUSCULAR HGB CONC 31.7 g/dL (32.0-36.0); MEAN CORPUSCULAR VOLUME 94.3 fL (80.0-94.0); MEAN PLATELET VOLUME 10.6 fL (7.4-11.4); MONOCYTES # (AUTO) 0.6 10^3/uL (0.0-1.0); MONOCYTES % (AUTO) 7.3 %; NEUTROPHILS % (AUTO) 76.9 %; PLT - PLATELET COUNT 178 10^3/uL (130-450); RED BLOOD COUNT 4.01 10^6/uL (4.70-6.10); RED CELL DISTRIBUTION WIDTH 13.5 % (12.0-15.0); WHITE BLOOD COUNT 7.8 x10^3/uL (4.8-10.8)
[2023-05-03] MEDS: SODIUM CHLORIDE 0.9% 1,000 ML IV STA (09:15)
[2023-05-03] MEDS: ADENOSINE 6 MG/2 ML VIAL IVP STA (09:25)
[2023-05-03 09:46] LABS: ALBUMIN 3.6 g/dL (3.2-5.5); ALBUMIN/GLOBULIN RATIO 1.2 (1.0-2.2); ALKALINE PHOSPHATASE 59 IU/L (42-121); ALT ALANINE AMINOTRANSFERASE < 3 IU/L (10-60); AST ASPARTATE AMINOTRANSFERASE 15 IU/L (10-42); BILIRUBIN,TOTAL 0.6 mg/dL (0.2-1.0); BUN - BLOOD UREA NITROGEN 25 mg/dL (6-20); CALCIUM 8.8 mg/dL (8.5-10.3); CARBON DIOXIDE - CO2 24 mmol/L (21-32); CHLORIDE 111 mmol/L (101-111); CREATININE 1.3 mg/dL (0.6-1.3); GFR - MDRD 54 (>89); GLUCOSE 100 mg/dL (74-104); LIPASE < 10 U/L (11-82); POTASSIUM 4.1 mmol/L (3.5-4.5); SODIUM 142 mmol/L (135-145); TOTAL PROTEIN 6.6 g/dL (6.4-8.9)
--- NOTE | 2023-05-03 09:47 | ED Physician Documentation ---
History of Present Illness - Stated complaint Stated Complaint: UNABLE TO SWALLOW - Chief complaint Chief Complaint: Abd Pain - History obtained from History obtained from: Patient - Additonal information Additional information: Patient is a 72-year-old male with a history of Parkinson's presenting for evaluation of difficulty with swallowing for the past 3 days. He has had this issue in the past. He has been seen here with esophageal food impactions. However he states that he is currently on a soft diet and that his cuts up all of his food for him so does not feel the same. Per his he has had some difficulties in swallowing for the past 3 days. She says that that he is bringing up what ever he is eaten. It has not happened with every meal and he does better with liquids than solids. He was able to keep his medications down today. She denies noticing any increased weakness. Patient has had a Botox injection to help with his swallow 5 or so months ago by an ENT in [facility]. She is unsure when he should have another injection or if they were planning on doing another procedure to help him with his swallow. She mentions that they told her he could have a surgery which is what she would be interested in him having. Patient denies chest pain, shortness of air, abdominal pain. Review of Systems Constitutional: denies: Fever Cardiac: denies: Chest pain / pressure Respiratory: denies: Dyspnea GI: denies: Abdominal Pain : reports: Incontinent (At baseline) Neurologic: denies: Difficulty speaking, Syncope PD PAST MEDICAL HISTORY - Past Medical History Cardiovascular: Hypertension, Other Respiratory: None Neuro: Other Endocrine/Autoimmune: None GI: None : Kidney stones HEENT: None Psych: Depression Musculoskeletal: None Derm: None Other Past Medical History: SVT - Past Surgical History Past Surgical History: Yes Ortho: Other - Present Medications Home Medications: Ambulatory Orders Medication Instructions Recorded Confirmed Sertraline [Zoloft] 100 mg PO DAILY 08/27/18 12/14/22 Simvastatin 10 mg PO HS 08/27/18 12/14/22 Ascorbic Acid [Vitamin C] 500 mg PO DAILY PRN 09/04/18 12/13/22 Multivitamin [Multivitamins] 1 cap PO DAILY 09/04/18 12/14/22 Celecoxib [CeleBREX] 100 mg PO BID 08/16/20 12/13/22 Riluzole [Rilutek] 50 mg PO BID 08/16/20 12/14/22 Carbidopa/Levodopa 2 tab PO TID 12/13/22 12/13/22 [Carbidopa-Levodopa 25-100 Tab] Lanolin Alcohol/Mo/W.pet/[place] 454 gm TP DAILY 12/14/22 12/14/22 [Eucerin Cream] Melatonin 6 mg PO HS 12/14/22 12/14/22 Tamsulosin [Flomax] 1 cap PO 1700 12/14/22 12/14/22 Calamine/Zinc Oxide [Calamine 1 applic TOP PRN PRN each 12/18/22 Lotion] Saccharomyces Boulardii [Florastor] 250 mg PO BIDWM #1 cap 12/18/22 levoFLOXacin [Levaquin] 750 mg PO 1500 #2 tab 12/18/22 Cefpodoxime Proxetil [Vantin] 100 mg PO Q12H #14 tablet 05/03/23 - Allergies Allergies/Adverse Reactions: Allergies Allergy/AdvReac Type Severity Reaction Status Date / Time No Known Drug Allergies Allergy Verified 12/13/22 09:14 - Social History Does the pt smoke?: Yes Smoking Status: Current every day smoker Does the pt drink ETOH?: No Does the pt have substance abuse?: No - Immunizations Immunizations are current?: Yes - POLST Patient has POLST: Yes POLST Status: DNR PD ED PE NORMAL - General General: Alert and oriented X 3, No acute distress, Well developed/nourished - HEENT HEENT: Atraumatic, Moist mucous membranes, Pharynx benign - Neck Neck: Supple, no meningeal sign - Cardiac Cardiac: Other (Tachycardic, regular rhythm) - Respiratory Respiratory: No respiratory distress, Clear bilaterally - Abdomen Abdomen: Normal bowel sounds, Soft, Non tender, Non distended - Derm Derm: Warm and dry - Extremities Extremities: Other (Tremors of the hands) - Neuro Neuro: Alert and oriented X 3, No motor deficit, No sensory deficit, Normal speech Results - Vitals Vitals: Vital Signs - 24 hr 05/03/23 05/03/23 05/03/23 08:48 09:31 11:46 Temperature 36.2 C L 36.9 C Heart Rate 149 H 103 H 67 Respiratory 18 14 12 Rate Blood Pressure 109/76 126/87 H 164/101 H O2 Saturation 97 99 98 05/03/23 12:38 Temperature Heart Rate 72 Respiratory 12 Rate Blood Pressure 128/111 H O2 Saturation 100 Oxygen O2 Source Room air - EKG (time done) 0836 EKG releavant findings:: EKG personally interpreted by author of this note. Relevant findings are: Rate 148, SVT, no STEMI 0938 EKG releavant findings:: EKG personally interpreted by author of this note. Relevant findings are: Rate 82, normal sinus rhythm, no STEMI, QTc 407 - Labs Labs: Laboratory Tests 05/03/23 05/03/23 05/03/23 08:51 08:51 08:51 WBC 7.8 RBC 4.01 L Hgb 12.0 L Hct 37.8 L MCV 94.3 H MCH 29.9 MCHC 31.7 L RDW 13.5 Plt Count 178 MPV 10.6 Neut # (Auto) 6.0 Lymph # (Auto) 1.0 L [place] # (Auto) 0.6 Eos # (Auto) 0.1 Baso # (Auto) 0.1 Absolute Nucleated RBC 0.00 Nucleated RBC % 0.0 Sodium 142 Potassium 4.1 Chloride 111 Carbon Dioxide 24 Anion Gap 7.0 BUN 25 H Creatinine 1.3 Estimated GFR (MDRD) 54 L Glucose 100 Calcium 8.8 Total Bilirubin 0.6 AST 15 ALT < 3 L Alkaline Phosphatase 59 Troponin I High Sens 9.5 Total Protein 6.6 Albumin 3.6 Globulin 3.0 Albumin/Globulin Ratio 1.2 Lipase < 10 L Urine Color Urine Clarity Urine pH Ur Specific [place] Urine Protein Urine Glucose (UA) Urine Ketones Urine Occult Blood Urine Nitrite Urine Bilirubin Urine Urobilinogen Ur Leukocyte Esterase Urine RBC Urine WBC Urine WBC Clumps Ur Squamous Epith Cells Urine Bacteria Ur Microscopic Review Urine Culture Comments 05/03/23 11:00 WBC RBC Hgb Hct MCV MCH MCHC RDW Plt Count MPV Neut # (Auto) Lymph # (Auto) [place] # (Auto) Eos # (Auto) Baso # (Auto) Absolute Nucleated RBC Nucleated RBC % Sodium Potassium Chloride Carbon Dioxide Anion Gap BUN Creatinine Estimated GFR (MDRD) Glucose Calcium Total Bilirubin AST ALT Alkaline Phosphatase Troponin I High Sens Total Protein Albumin Globulin Albumin/Globulin Ratio Lipase Urine Color YELLOW Urine Clarity CLOUDY Urine pH 6.0 Ur Specific [place] 1.010 Urine Protein NEGATIVE Urine Glucose (UA) NEGATIVE Urine Ketones NEGATIVE Urine Occult Blood NEGATIVE Urine Nitrite NEGATIVE Urine Bilirubin NEGATIVE Urine Urobilinogen 0.2 (NORMAL) Ur Leukocyte Esterase LARGE H Urine RBC 0-5 Urine WBC >25 H Urine WBC Clumps PRESENT Ur Squamous Epith Cells NONE SEEN Urine Bacteria Moderate H Ur Microscopic Review INDICATED Urine Culture Comments INDICATED Procedures - Cardioversion - Major 1 Indication: Tachyarrhythmia (SVT) Risks, benefits, alternatives explained to: Pt, POA Prep: IV, O2, transport engineer, Pulse ox Meds: Adenocard (6 mg) Post cardioversion rhythm: NSR Complications: Other (None) Performed by: ED MD PD Medical Decision Making - ED course Complexity details: reviewed results, re-evaluated patient, d/w patient, d/w family ED course: Patient presenting for evaluation of difficulty with swallowing. Has a history of Parkinson's and has had this in the past. Also has had a history of esophageal food impactions but this seems different. Has had Botox injection to help with his swallow several months ago. Patient does appear to be swallowing his secretions here. Noted to be tachycardic. EKG shows supraventricular tachycardia. Does have a history of this on 1 occasion previously which responded to adenosine. Patient was given 6 mg of adenosine with improvement to normal sinus rhythm. Stable blood pressure. Labs including CBC, chemistry, troponin and urinalysis were obtained and reviewed. No electrolyte disturbances or signs of ACS. Chest x-ray is negative for signs of consolidation. Urinalysis is concerning for infection. This be causing worsening weakness of his underlying Parkinson's including his difficulties with swallow. However here he is able to swallow his oral antibiotic without any difficulty along with a glass of water. Recommend course of antibiotics for his urine infection as well as close follow-up with his PCP regarding his SVT and swallow difficulties along with follow-up with ENT. He has seen again ENT in the past for Botox injection it may be time for him to have another to see if this helps improve his swallow. In the meanwhile I recommended a liquid to pured diet. is comfortable with this plan and understands concerning symptoms to return for. Patient otherwise neurologically appears to be at his baseline. 1215 - Patient was able to take his p.o. antibiotic and drink a glass of water without any difficulty. - Critical Care Time(min): 32 Time Includes: Direct patient care, Review records, Reassess patient Data interpretation: Labs, CXR, Prior EKG Departure - Departure Disposition: 01 Home, Self Care Clinical Impression: SVT (supraventricular tachycardia), UTI (urinary tract infection), Swallowing difficulty, Parkinson disease Condition: Stable Instructions: Dysphagia Diet, ED Tachycardia Pat PSVT, ED UTI Cystitis Male Prescriptions: Cefpodoxime Proxetil [Vantin] 100 mg PO Q12H #14 tablet Comments: You need close follow-up with your primary care provider as well as with your ENT specialist regarding your difficulty swallowing. You also need follow-up with your primary care regarding your irregular heart rhythm that you are in today. You had an episode of SVT which is also called supraventricular tachycardia where your heart is going to fast. We did give you medication and were able to convert your heart back to a regular rhythm. There were also evaluated for some difficulties with swallowing. Your electrolytes are normal I do not see signs of pneumonia on your chest x-ray. You are able to swallow your antibiotic pill and fluids here and I would recommend sticking with a mostly fluid or pured diet until you are seen for follow-up. You also have a urine infection which could be making your Parkinson symptoms worse. Your antibiotic was sent to [facility] in [place]. Return to the ER with any worsening symptoms. Forms: PCP List Discharge Date/Time: 05/03/23 12:38
--- NOTE | 2023-05-03 10:12 | XRAY Report ---
PROCEDURE: Chest 1V INDICATIONS: SVT/ trouble swallowing / ?aspiration TECHNIQUE: One view of the chest was acquired. COMPARISON: Chest x-ray 12/12/2022 FINDINGS: Surgical changes and devices: None. Lungs and pleura: No pleural effusions or pneumothorax. Lungs are clear. Mediastinum: Mediastinal contours appear normal. Heart size is enlarged. Bones and chest wall: No suspicious bony lesions. Overlying soft tissues appear unremarkable. IMPRESSION: No acute pulmonary process. Reviewed by: Matilde Hines MD on 05/03/2023 10:11 AM [facility] Approved by: Matilde Hines MD on 05/03/2023 10:11 AM [facility] Station ID: [id number]
[2023-05-03 11:14] LABS: BILIRUBIN,URINE NEGATIVE (NEGATIVE); GLUCOSE, URINE (UA) NEGATIVE (NEGATIVE); KETONES,URINE (UA) NEGATIVE (NEGATIVE); LEUKOCYTE ESTERASE, URINE LARGE (NEGATIVE); NITRITE,URINE NEGATIVE (NEGATIVE); OCCULT BLOOD,URINE NEGATIVE (NEGATIVE); PROTEIN,URINE NEGATIVE (NEGATIVE); UROBILINOGEN,URINE 0.2 (NORMAL) E.U./dL (NORMAL)
[2023-05-03 11:17] LABS: CLARITY,URINE CLOUDY (CLEAR)
[2023-05-03 11:31] LABS: BACTERIA,URINE Moderate /HPF (None Seen); RBC,URINE 0-5 /HPF (0-5); SQUAMOUS EPITHELIAL CELL,UR NONE SEEN (<= Few); WBC CLUMPS,URINE PRESENT; WBC,URINE >25 /HPF (0-3)
[2023-05-03] MEDS: CEFPODOXIME PROXETIL 100 MG TABLET PO STA (11:50)
[2023-05-03 12:39] VITALS: BP 128/111; O2SAT 100
--- NOTE | 2023-05-06 12:07 | ED Physician Documentation ---
ED Addendum - Addendum Addendum: 05/06/23 12:06 Culture reviewed, Enterococcus should be resistant to all cephalosporins and he was put on cefpodoxime initially. Called and spoke with and new prescription for penicillin VK 500 mg p.o. 4 times daily #40 sent to [facility] in [place] and she voices understanding.
== END 2023-05-03 12:38 | disposition home or self-care (01) ==
LOC: EDUNIT# → ED 08:26
DX: R13.10 Dysphagia, unspecified (principal); I47.10 Supraventricular tachycardia, unspecified; N39.0 Urinary tract infection, site not specified; G20.A1 Parkinson's disease without dyskinesia, without mention of fluctuations; F17.200 Nicotine dependence, unspecified, uncomplicated
CPT/HCPCS: 36415; 71045; 80053; 81001; 83690; 84484; 85025; 87077; 87086; 87181; 93005; 96374; 99284; 99291; A9270; J0153; 81003

== ENCOUNTER 2023-09-14 11:11 | Outpatient (CLI) | payer MEDICARE, OTHER | END 2023-09-14 23:59 | disposition critical access hospital (66) | LOC: EMS 11:11 | PROVIDERS: ATTEND Emergency Medicine | DX: I95.9 Hypotension, unspecified (principal); W18.39XA Other fall on same level, initial encounter; Y93.01 Activity, walking, marching and hiking; Y92.019 Unspecified place in single-family (private) house as the place of occurrence of the external cause | CPT/HCPCS: A0425; A0427 ==

== ENCOUNTER 2023-09-14 11:36 | Emergency (ER) | payer MEDICARE, OTHER ==
--- NOTE | 2023-09-14 11:52 | ED Physician Documentation ---
PD HPI Fall - Stated complaint Stated Complaint: GLF - History obtained from History obtained from: Patient, Family, EMS - History of Present Illness Mechanism of injury: No: Syncope (but felt lightheaded, weak and fell, with injury to left chest.) Fall distance: Standing position (he did fall just onto bed, so no apparent injury. EMS called and they noted BP low, that improved enroute with IV fluids.) Where injury occurred: Home Timing - onset: Today Injury(ies) location: No: Head, Face, Neck, Chest, Abdomen Associated symptoms: No: LOC, AMS Symptoms improve with: Rest Worsens with: Movement Contributing factors: No: Anticoagulated, Intoxicated Similar symptoms before: Diagnosis (parkinsons and weakness with difficulty walking, and has had some falls.) Review of Systems Constitutional: denies: Fever, Chills Skin: denies: Abrasion (s), Laceration (s) PD PAST MEDICAL HISTORY - Past Medical History Cardiovascular: Hypertension, Other Respiratory: None Neuro: Other Endocrine/Autoimmune: None GI: None : Kidney stones HEENT: None Psych: Depression Musculoskeletal: None Derm: None - Past Surgical History Past Surgical History: Yes Ortho: Other - Present Medications Home Medications: Ambulatory Orders Medication Instructions Recorded Confirmed Sertraline [Zoloft] 100 mg PO DAILY 08/27/18 12/14/22 Simvastatin 10 mg PO HS 08/27/18 12/14/22 Ascorbic Acid [Vitamin C] 500 mg PO DAILY PRN 09/04/18 12/13/22 Multivitamin [Multivitamins] 1 cap PO DAILY 09/04/18 12/14/22 Celecoxib [CeleBREX] 100 mg PO BID 08/16/20 12/13/22 Riluzole [Rilutek] 50 mg PO BID 08/16/20 12/14/22 Carbidopa/Levodopa 2 tab PO TID 12/13/22 12/13/22 [Carbidopa-Levodopa 25-100 Tab] Lanolin Alcohol/Mo/W.pet/[place] 454 gm TP DAILY 12/14/22 12/14/22 [Eucerin Cream] Melatonin 6 mg PO HS 12/14/22 12/14/22 Tamsulosin [Flomax] 1 cap PO 1700 12/14/22 12/14/22 Calamine/Zinc Oxide [Calamine 1 applic TOP PRN PRN each 12/18/22 Lotion] Saccharomyces Boulardii [Florastor] 250 mg PO BIDWM #1 cap 12/18/22 levoFLOXacin [Levaquin] 750 mg PO 1500 #2 tab 12/18/22 Cefpodoxime Proxetil [Vantin] 100 mg PO Q12H #14 tablet 05/03/23 Penicillin V Potassium 500 mg PO Q6HR #40 tablet 05/06/23 - Allergies Allergies/Adverse Reactions: Allergies Allergy/AdvReac Type Severity Reaction Status Date / Time No Known Drug Allergies Allergy Verified 09/14/23 11:52 - Social History Does the pt smoke?: Yes Smoking Status: Current every day smoker Does the pt drink ETOH?: No Does the pt have substance abuse?: No - Immunizations Immunizations are current?: Yes - POLST Patient has POLST: Yes POLST Status: DNR PD ED PE NORMAL - Vitals Vital signs reviewed: Yes - General General: Alert and oriented X 3, No acute distress, Well developed/nourished - HEENT HEENT: Atraumatic - Neck Neck: Supple, no meningeal sign, No bony TTP - Cardiac Cardiac: RRR, No murmur - Respiratory Respiratory: Clear bilaterally, Other (no chestwall tenderness. ) - Abdomen Abdomen: Soft, Non tender Results - Vitals Vitals: Oxygen O2 Source Room air - EKG (time done) 12:00 EKG releavant findings:: EKG personally interpreted by author of this note. Relevant findings are: Rate: Rate (enter#) (68) Rhythm: NSR [place]: Normal Intervals: Normal UT QRS: Normal Ischemia: Normal ST segments. No: ST elevation c/w ischemia, ST depression - Labs Labs: Laboratory Tests 09/14/23 09/14/23 12:06 12:06 WBC 6.9 RBC 4.14 L Hgb 12.6 L Hct 40.0 L MCV 96.6 H MCH 30.4 MCHC 31.5 L RDW 13.2 Plt Count 162 MPV 10.3 Neut # (Auto) 4.9 Lymph # (Auto) 1.2 L [place] # (Auto) 0.5 Eos # (Auto) 0.2 Baso # (Auto) 0.1 Absolute Nucleated RBC 0.00 Nucleated RBC % 0.0 Sodium 140 Potassium 4.0 Chloride 109 Carbon Dioxide 27 Anion Gap 4.0 L BUN 24 H Creatinine 1.0 Estimated GFR (MDRD) 73 L Glucose 93 Calcium 8.7 Magnesium 1.7 Total Bilirubin 0.6 AST 13 ALT 4 L Alkaline Phosphatase 50 Total Protein 6.2 L Albumin 3.8 Globulin 2.4 Albumin/Globulin Ratio 1.6 Lipase 13 - Rads (name of study) chest xray Relevant Findings:: Prelim report reviewed, EMP independent interpretation of test (no acute process) PD Medical Decision Making - ED course Complexity details: reviewed results (chest xray without acute findings. ), re- evaluated patient (he is feeling well with normal baseline mentation and strength per . Basic labs okay. They are comfortable going home. No signficant abnormalities noteed. ), considered differential (had fall onto bed without apparent injury. EMS noted low BP initially. No recent illness. Can check CBC/chemistry, CXR, ECG for abnormalities that might contribute to transient low BP. meanwhile fluids IF for presumed volume depletion. ), d/w patient Departure - Departure Disposition: 01 Home, Self Care Clinical Impression: Fall from slip, trip, or stumble, Transient hypotension Condition: Stable Record reviewed to determine appropriate education?: Yes Follow-Up: DENAE HARDING PA-C [Primary Care Provider] - Comments: Your blood pressure was transiently low by the medics prehospital but has improved with some IV fluids. We did check basic chemistry and blood count blood tests which are good. No signs of apparent injury. Continue with usual medications and activity. Use your walker with walking around. Return as needed. Forms: PCP List Discharge Date/Time: 09/14/23 13:21
[2023-09-14 12:12] LABS: BASOPHILS # (AUTO) 0.1 10^3/uL (0.0-0.1); BASOPHILS % (AUTO) 0.9 %; EOSINOPHILS # (AUTO) 0.2 10^3/uL (0.0-0.7); EOSINOPHILS % (AUTO) 2.5 %; HGB - HEMOGLOBIN 12.6 g/dL (14.0-18.0); LYMPHOCYTES # (AUTO) 1.2 10^3/uL (1.5-3.5); LYMPHOCYTES % (AUTO) 17.6 %; MEAN CORPUSCULAR HEMOGLOBIN 30.4 pg (27.0-31.0); MEAN CORPUSCULAR HGB CONC 31.5 g/dL (32.0-36.0); MEAN CORPUSCULAR VOLUME 96.6 fL (80.0-94.0); MEAN PLATELET VOLUME 10.3 fL (7.4-11.4); MONOCYTES # (AUTO) 0.5 10^3/uL (0.0-1.0); MONOCYTES % (AUTO) 7.3 %; NEUTROPHILS # (AUTO) 4.9 10^3/uL (1.5-6.6); NEUTROPHILS % (AUTO) 71.6 %; PLT - PLATELET COUNT 162 10^3/uL (130-450); RED BLOOD COUNT 4.14 10^6/uL (4.70-6.10); RED CELL DISTRIBUTION WIDTH 13.2 % (12.0-15.0); WHITE BLOOD COUNT 6.9 x10^3/uL (4.8-10.8)
[2023-09-14 12:28] LABS: ALBUMIN 3.8 g/dL (3.2-5.5); ALBUMIN/GLOBULIN RATIO 1.6 (1.0-2.2); BILIRUBIN,TOTAL 0.6 mg/dL (0.2-1.0); CALCIUM 8.7 mg/dL (8.5-10.3); MAGNESIUM 1.7 mg/dL (1.7-2.3); TOTAL PROTEIN 6.2 g/dL (6.4-8.9)
--- NOTE | 2023-09-14 12:30 | XRAY Report ---
PROCEDURE: Chest 1V INDICATIONS: fainting TECHNIQUE: One view of the chest was acquired. COMPARISON: Chest radiograph 05/03/2023. FINDINGS: Surgical changes and devices: None. Lungs and pleura: No pleural effusions or pneumothorax. Lungs are clear. Mediastinum: Mediastinal contours appear normal. Heart size is normal. Bones and chest wall: No suspicious bony lesions. Overlying soft tissues appear unremarkable. IMPRESSION: No acute cardiopulmonary process. Reviewed by: Dariela Garcia MD, PhD on 09/14/2023 11:29 AM [facility] Approved by: Dariela Garcia MD, PhD on 09/14/2023 11:29 AM [facility] Station ID: [id number]
[2023-09-14 13:27] VITALS: BP 119/97; O2SAT 96
== END 2023-09-14 13:21 | disposition home or self-care (01) ==
LOC: EDUNIT# → ED 11:36
DX: I95.89 Other hypotension (principal); F17.200 Nicotine dependence, unspecified, uncomplicated; Z91.81 History of falling
CPT/HCPCS: 36415; 80053; 83690; 83735; 85025; 93005; 99283; 99284

== ENCOUNTER 2023-09-30 12:14 | Emergency (ER) | payer MEDICARE, OTHER ==
[2023-09-30 12:34] VITALS: BP 120/67; O2SAT 95
[2023-09-30 14:33] LABS: BASOPHILS # (AUTO) 0.1 10^3/uL (0.0-0.1); BASOPHILS % (AUTO) 0.7 %; EOSINOPHILS # (AUTO) 0.1 10^3/uL (0.0-0.7); EOSINOPHILS % (AUTO) 1.1 %; HGB - HEMOGLOBIN 13.8 g/dL (14.0-18.0); LYMPHOCYTES # (AUTO) 1.5 10^3/uL (1.5-3.5); LYMPHOCYTES % (AUTO) 12.7 %; MEAN CORPUSCULAR HEMOGLOBIN 30.6 pg (27.0-31.0); MEAN CORPUSCULAR HGB CONC 32.1 g/dL (32.0-36.0); MEAN CORPUSCULAR VOLUME 95.3 fL (80.0-94.0); MONOCYTES # (AUTO) 1.1 10^3/uL (0.0-1.0); NEUTROPHILS # (AUTO) 8.9 10^3/uL (1.5-6.6); NEUTROPHILS % (AUTO) 76.2 %; PLT - PLATELET COUNT 174 10^3/uL (130-450); RED BLOOD COUNT 4.51 10^6/uL (4.70-6.10); RED CELL DISTRIBUTION WIDTH 12.7 % (12.0-15.0); WHITE BLOOD COUNT 11.7 x10^3/uL (4.8-10.8)
[2023-09-30 14:42] LABS: ALBUMIN 4.1 g/dL (3.2-5.5); ALBUMIN/GLOBULIN RATIO 1.3 (1.0-2.2); BILIRUBIN,TOTAL 0.9 mg/dL (0.2-1.0); CALCIUM 9.5 mg/dL (8.5-10.3); CREATININE 0.9 mg/dL (0.6-1.3); POTASSIUM 3.6 mmol/L (3.5-4.5); TOTAL PROTEIN 7.2 g/dL (6.4-8.9)
== END 2023-09-30 16:10 | disposition left against medical advice (07) ==
LOC: ED 12:14
DX: Z53.21 Procedure and treatment not carried out due to patient leaving prior to being seen by health care provider (principal)
CPT/HCPCS: 36415; 80053; 83690; 85025

== ENCOUNTER 2023-09-30 17:41 | Outpatient (CLI) | payer MEDICARE, OTHER | END 2023-09-30 17:42 | disposition critical access hospital (66) | LOC: EMS 17:41 | DX: R53.1 Weakness (principal) | CPT/HCPCS: A0425; A0429 ==

== ENCOUNTER 2023-09-30 18:04 | Emergency (ER) | payer MEDICARE, OTHER ==
[2023-09-30] MEDS: SODIUM CHLORIDE 0.9% 1,000 ML IV STA (20:35)
[2023-09-30 20:52] LABS: BILIRUBIN,URINE NEGATIVE (NEGATIVE); GLUCOSE, URINE (UA) NEGATIVE (NEGATIVE); KETONES,URINE (UA) NEGATIVE (NEGATIVE); LEUKOCYTE ESTERASE, URINE TRACE (NEGATIVE); NITRITE,URINE NEGATIVE (NEGATIVE); OCCULT BLOOD,URINE LARGE (NEGATIVE); PH,URINE 5.5 PH (5.0-7.5); PROTEIN,URINE 30 mg/dL (NEGATIVE); UROBILINOGEN,URINE 1 (NORMAL) E.U./dL (NORMAL)
[2023-09-30 20:53] LABS: BASOPHILS # (AUTO) 0.1 10^3/uL (0.0-0.1); BASOPHILS % (AUTO) 0.5 %; EOSINOPHILS # (AUTO) 0.1 10^3/uL (0.0-0.7); EOSINOPHILS % (AUTO) 0.7 %; HCT - HEMATOCRIT 43.9 % (42.0-52.0); HGB - HEMOGLOBIN 13.9 g/dL (14.0-18.0); LYMPHOCYTES # (AUTO) 1.6 10^3/uL (1.5-3.5); LYMPHOCYTES % (AUTO) 11.9 %; MEAN CORPUSCULAR HEMOGLOBIN 30.3 pg (27.0-31.0); MEAN CORPUSCULAR HGB CONC 31.7 g/dL (32.0-36.0); MEAN CORPUSCULAR VOLUME 95.6 fL (80.0-94.0); MEAN PLATELET VOLUME 10.4 fL (7.4-11.4); MONOCYTES # (AUTO) 1.2 10^3/uL (0.0-1.0); NEUTROPHILS # (AUTO) 10.4 10^3/uL (1.5-6.6); NEUTROPHILS % (AUTO) 77.5 %; PLT - PLATELET COUNT 179 10^3/uL (130-450); RED BLOOD COUNT 4.59 10^6/uL (4.70-6.10); RED CELL DISTRIBUTION WIDTH 12.7 % (12.0-15.0); WHITE BLOOD COUNT 13.4 x10^3/uL (4.8-10.8)
[2023-09-30 20:53] LABS: CLARITY,URINE HAZY (CLEAR)
[2023-09-30 21:05] LABS: SQUAMOUS EPITHELIAL CELL,UR NONE SEEN (<= Few)
[2023-09-30 21:06] LABS: BACTERIA,URINE Moderate /HPF (None Seen)
[2023-09-30 21:10] LABS: ALBUMIN/GLOBULIN RATIO 1.3 (1.0-2.2); BILIRUBIN,TOTAL 0.8 mg/dL (0.2-1.0); CALCIUM 9.6 mg/dL (8.5-10.3); POTASSIUM 3.8 mmol/L (3.5-4.5); TOTAL PROTEIN 7.2 g/dL (6.4-8.9)
[2023-09-30] MEDS ORDERED: iohexoL-300 100 ML VIAL ONE (21:15)
[2023-09-30 21:22] LABS: ABG BASE EXCESS -2.9 mmol/L (-2.0-3.0); ABG HCO3 21.6 mmol/L (22.0-26.0); ABG OXYGEN SATURATION 94 % (94-98); ABG PCO2 37 mmHg (34-45); ABG PH 7.39 (7.35-7.45); ABG PO2 74 mmHg (80-100); ABG TCO2 22.7 MMOL/L (21.0-29.0); ALLEN TEST POSITIVE
[2023-09-30] MEDS: iohexoL-300 100 ML VIAL IVP ONE (21:35)
[2023-09-30] MEDS: HYDROmorphone 1 MG/ML CARPUJECT IVP STA (21:35)
[2023-09-30] MEDS: diltiaZEM CD 120 MG CAPSULE PO STA (22:15)
--- NOTE | 2023-09-30 22:33 | CT Report ---
PROCEDURE: Abdomen/Pelvis W INDICATIONS: L flank/LQ pain CONTRAST: Omni 300, 100mls TECHNIQUE: After the administration of intravenous contrast, a CT scan of the abdomen and pelvis was performed. Images were recorded and evaluated at appropriate window settings. Reformats: coronal and sagittal. F or radiation dose reduction, the following was used: automated exposure control, adjustment of mA and /or kV according to patient size. COMPARISON: CT abdomen pelvis 12/14/2022. FINDINGS: Image quality: Degraded by patient motion artifact. Lower chest: Left lower lung consolidation.. Liver: Stable right hepatic cyst Gallbladder: No radiopaque stones or wall thickening. Biliary tree: No intrahepatic or extrahepatic dilation, accounting for age. Spleen: No splenomegaly. Pancreas: No pancreatic ductal dilation. Adrenals: No adrenal nodule. Kidneys and ureters: Stable bilateral nonobstructing renal calculi. Persistent moderate left hydroure teronephrosis without identified obstructing calculus.. No renal cystic lesion which requires follow up. No solid mass. Stomach, bowel and peritoneum: No gastric or small bowel dilation. No abnormal wall thickening. No pa thologic free fluid. Large rectal stool ball with minimally thickened rectal wall Lymph nodes: No central or retroperitoneal adenopathy. Vessels: Ectatic infrarenal abdominal aorta measuring up to 3.0 cm. No infrarenal aortic aneurysm. Pa tent portal vein. Aortobiiliac arthroscopic calcifications. PELVIS Reproductive organs: Unremarkable. Bladder: Bladder is collapsed runner Reich catheter in situ, however there is marked circumferential bladder wall thickening. Query foci of gas in the bladder wall (2/139). Pelvic lymph nodes: No pelvic adenopathy by size criteria. Bones: No aggressive osseous abnormality. Other: Bilateral inguinal hernias.. IMPRESSION: Motion degraded exam. Left lower lung consolidation, increased since 12/15/2022. Although findings may represent infectious process, underlying malignancy cannot be excluded. Consider future imaging surveillance to assess for resolution. Marked circumferential bladder wall thickening, which can be seen in the setting of cystitis of eithe r infectious or noninfectious etiology. Query gas within the bladder wall which could represent emphy sematous cystitis, however given motion degradation this also may represent artifact. Correlate with urine culture and urinalysis. Persistent moderate left hydroureteronephrosis without obstructing calculus identified. Consider furt her evaluation with nonemergent CT IVP. Large rectal stool ball with minimally thickened wall, findings can be seen in the setting of stercor al proctitis Reviewed by: Dariela Garcia MD, PhD on 09/30/2023 10:32 PM PDT Approved by: Dariela Garcia MD, PhD on 09/30/2023 10:32 PM PDT Station ID: [id number]
--- NOTE | 2023-09-30 23:37 | XRAY Report ---
PROCEDURE: Chest 1V INDICATIONS: sob TECHNIQUE: One view of the chest was acquired. COMPARISON: Chest radiograph 09/14/2023. FINDINGS: Surgical changes and devices: None. Lungs and pleura: No pneumothorax. Query small left pleural effusion. Low lung volumes with intersti tial prominence and left basal opacity. Mediastinum: Mediastinal contours appear normal. Heart size is normal. Bones and chest wall: No suspicious bony lesions. Overlying soft tissues appear unremarkable. IMPRESSION: Left basilar opacity which may represent atelectasis, aspiration or pneumonia in the appropriate clin ical setting. Query small left pleural effusion. Low lung volumes with interstitial prominence may re present mild pulmonary edema versus bronchovascular crowding. Reviewed by: Dariela Garcia MD, PhD on 09/30/2023 11:36 PM PDT Approved by: Dariela Garcia MD, PhD on 09/30/2023 11:36 PM PDT Station ID: [id number]
[2023-10-01] MEDS ORDERED: cefTRIAXone 2 GM VIAL ONE (01:00)
[2023-10-01] MEDS: cefTRIAXone 2 GM in SODIUM CHLORIDE 0.9% MINIBAG 100 ML IV STA (01:07)
[2023-10-01] MEDS: AZITHROMYCIN INJ 500 MG in SODIUM CHLORIDE 0.9% 250 ML IV STA (01:40)
[2023-10-01 06:27] VITALS: BP 111/74; O2SAT 92
--- NOTE | 2023-10-01 06:37 | ED Physician Documentation ---
History of Present Illness - Stated complaint Stated Complaint: WEAKNESS - Chief complaint Chief Complaint: General - History obtained from History obtained from: Patient, Family - Additonal information Additional information: The patient is brought to the emergency department by his for chief complaint of left side pain, weakness, and cough. He has not had any fevers but just has been very weak today. The states he seems slightly off yesterday but not nearly as bad as now. She states that just after they arrived here, the patient began breathing fast and appearing very uncomfortable complaining of a lot of pain in his side. He has a history of Parkinson's disease and parkinsonian dementia. He has not had any changes to his medications recently. The patient was here earlier with his and after waiting for a few hours, they decided to go home because the patient was getting agitated and was hungry. He was after that the states the patient just seemed to go limp for a few minutes and she became concerned and decided to come back in. The patient did have labs done while here earlier before he could be brought back into the emergency department. PD PAST MEDICAL HISTORY - Past Medical History Past Medical History: Yes Cardiovascular: Hypertension, High cholesterol, Other Respiratory: None Neuro: Dementia, Parkinson's, Other Endocrine/Autoimmune: None GI: None : Kidney stones HEENT: None Psych: Depression Musculoskeletal: None Derm: None - Past Surgical History Past Surgical History: Yes Ortho: Other - Present Medications Home Medications: Ambulatory Orders Medication Instructions Recorded Confirmed Sertraline [Zoloft] 100 mg PO DAILY 08/27/18 09/30/23 Simvastatin 10 mg PO HS 08/27/18 10/01/23 Ascorbic Acid [Vitamin C] 500 mg PO DAILY PRN 09/04/18 09/30/23 Multivitamin [Multivitamins] 1 cap PO DAILY 09/04/18 09/30/23 Celecoxib [CeleBREX] 100 mg PO QPM 08/16/20 10/01/23 Riluzole [Rilutek] 50 mg PO BID 08/16/20 09/30/23 Carbidopa/Levodopa 200 mg PO TID 12/13/22 10/01/23 [Carbidopa-Levodopa 25-100 Tab] Tamsulosin [Flomax] 2 cap PO 1700 12/14/22 10/01/23 Saccharomyces Boulardii [Florastor] 250 mg PO BIDWM #1 cap 12/18/22 09/30/23 Azithromycin [Zithromax] 0 mg PO DAILY #6 tablet 10/01/23 Cefdinir 300 mg PO BID #20 cap 10/01/23 HYDROcod/ACETAM 5/325 [[place]empner 5/325] 1 - 2 tablet PO Q6H PRN #14 tablet 10/01/23 - Allergies Allergies/Adverse Reactions: Allergies Allergy/AdvReac Type Severity Reaction Status Date / Time No Known Drug Allergies Allergy Verified 09/30/23 18:09 - Social History Does the pt smoke?: Yes Smoking Status: Current every day smoker Does the pt drink ETOH?: No Does the pt have substance abuse?: No - Immunizations Immunizations are current?: Yes - POLST Patient has POLST: Yes POLST Status: DNR PD ED PE NORMAL - Vitals Vital signs reviewed: Yes - General General: Well developed/nourished, Other (Alert, appears anxious. Rapid, splinting respirations.) - HEENT HEENT: Atraumatic, PERRL, EOMI, Moist mucous membranes - Neck Neck: Supple, no meningeal sign - Cardiac Cardiac: No murmur, Strong equal pulses (Irregular, tachycardic rhythm.), Other - Respiratory Respiratory: Clear bilaterally, Other (Rapid, shallow respirations with "catching" sounds coming from the patient's throat, consistent with splinting. Patient is holding his left side with breaths.) - Abdomen Abdomen: Soft, Non distended, Other (Mild left flank tenderness, no rebound or guarding.) - Derm Derm: Normal color, Warm and dry, No rash - Extremities Extremities: No deformity, No edema, No calf tenderness / cord - Neuro Neuro: Other (Alert, no gross deficits.) - Psych Psych: Normal mood, Normal affect Results - Vitals Vitals: Vital Signs - 24 hr 09/30/23 09/30/23 09/30/23 18:10 20:26 20:40 Temperature 36.8 C 36.8 C 36.8 C Heart Rate 100 96 118 H Respiratory 16 23 39 H Rate Blood Pressure 112/72 150/104 H 157/94 H O2 Saturation 96 96 88 L If not protocol : Oxygen Flow, liters/minute 09/30/23 09/30/23 09/30/23 20:47 21:19 21:32 Temperature 36.8 C Heart Rate 106 H 93 Respiratory 32 H 32 H Rate Blood Pressure 163/77 H 130/91 H O2 Saturation 94 98 95 If not protocol 2 3 4 : Oxygen Flow, liters/minute 09/30/23 09/30/23 09/30/23 21:46 21:57 22:30 Temperature 36.8 C 36.5 C 36.5 C Heart Rate 93 93 102 H Respiratory 22 24 22 Rate Blood Pressure 130/91 H 130/91 H 105/82 H O2 Saturation 94 95 94 If not protocol 4 3 3 : Oxygen Flow, liters/minute 09/30/23 10/01/23 10/01/23 23:23 00:39 01:42 Temperature 36.9 C 37.2 C Heart Rate 100 86 78 Respiratory 18 16 24 Rate Blood Pressure 112/84 H 98/72 113/72 O2 Saturation 94 94 94 If not protocol 3 3 3 : Oxygen Flow, liters/minute 10/01/23 10/01/23 10/01/23 02:46 04:35 05:40 Temperature 37.0 C Heart Rate 77 73 84 Respiratory 22 18 19 Rate Blood Pressure 103/70 116/92 H 119/85 H O2 Saturation 94 97 97 If not protocol 3 3 3 : Oxygen Flow, liters/minute 10/01/23 10/01/23 06:01 06:22 Temperature 36.8 C 36.8 C Heart Rate 84 83 Respiratory 15 18 Rate Blood Pressure 110/76 111/74 O2 Saturation 93 92 If not protocol : Oxygen Flow, liters/minute Oxygen O2 Source Room air Oxygen Flow Rate 2 - EKG (time done) 3 EKG releavant findings:: EKG personally interpreted by author of this note. Relevant findings are: Rate: Rate (enter#) (100) Rhythm: Atrial fibrillation [place]: Normal QRS: Normal Ischemia: Normal ST segments, Non specific changes Other comments: Other comments (PVC noted.) Compare to prior EKG: Old EKG unavailable Computer interpretation: Agree with computer - Labs Labs: Laboratory Tests 09/30/23 09/30/23 09/30/23 20:30 20:30 20:40 WBC 13.4 H RBC 4.59 L Hgb 13.9 L Hct 43.9 MCV 95.6 H MCH 30.3 MCHC 31.7 L RDW 12.7 Plt Count 179 MPV 10.4 Neut # (Auto) 10.4 H Lymph # (Auto) 1.6 [place] # (Auto) 1.2 H Eos # (Auto) 0.1 Baso # (Auto) 0.1 Absolute Nucleated RBC 0.00 Nucleated RBC % 0.0 Bld Gas Analysis Time Sample Site ABG pH ABG pCO2 ABG pO2 ABG HCO3 ABG Total CO2 ABG O2 Saturation ABG Base Excess Toño Test O2 Delivery Device O2 Liters/Min Sodium 137 Potassium 3.8 Chloride 101 Carbon Dioxide 27 Anion Gap 9.0 BUN 24 H Creatinine 1.0 Estimated GFR (MDRD) 73 L Glucose 111 H Calcium 9.6 Total Bilirubin 0.8 AST 13 ALT 10 Alkaline Phosphatase 62 Troponin I High Sens Total Protein 7.2 Albumin 4.0 Globulin 3.2 Albumin/Globulin Ratio 1.3 Lipase 12 Urine Color YELLOW Urine Clarity HAZY Urine pH 5.5 Ur Specific [place] >=1.030 H Urine Protein 30 H Urine Glucose (UA) NEGATIVE Urine Ketones NEGATIVE Urine Occult Blood LARGE H Urine Nitrite NEGATIVE Urine Bilirubin NEGATIVE Urine Urobilinogen 1 (NORMAL) Ur Leukocyte Esterase TRACE H Urine RBC 6-10 H Urine WBC 6-10 H Ur Squamous Epith Cells NONE SEEN Urine Bacteria Moderate H Ur Microscopic Review INDICATED Urine Culture Comments INDICATED 09/30/23 09/30/23 21:13 21:15 WBC RBC Hgb Hct MCV MCH MCHC RDW Plt Count MPV Neut # (Auto) Lymph # (Auto) [place] # (Auto) Eos # (Auto) Baso # (Auto) Absolute Nucleated RBC Nucleated RBC % Bld Gas Analysis Time 2120 Sample Site RIGHT RADIAL ABG pH 7.39 ABG pCO2 37 ABG pO2 74 L ABG HCO3 21.6 L ABG Total CO2 22.7 ABG O2 Saturation 94 ABG Base Excess -2.9 L Toño Test POSITIVE O2 Delivery Device NASAL CANNULA O2 Liters/Min 4.00 Sodium Potassium Chloride Carbon Dioxide Anion Gap BUN Creatinine Estimated GFR (MDRD) Glucose Calcium Total Bilirubin AST ALT Alkaline Phosphatase Troponin I High Sens 14.1 Total Protein Albumin Globulin Albumin/Globulin Ratio Lipase Urine Color Urine Clarity Urine pH Ur Specific [place] Urine Protein Urine Glucose (UA) Urine Ketones Urine Occult Blood Urine Nitrite Urine Bilirubin Urine Urobilinogen Ur Leukocyte Esterase Urine RBC Urine WBC Ur Squamous Epith Cells Urine Bacteria Ur Microscopic Review Urine Culture Comments - Rads (name of study) Chest x-ray Relevant Findings:: Final report received, See rad report (Left lower lobe consolidation, new since last study.) CT abdomen and pelvis no contrast Relevant Findings:: Final report received, See rad report (Other than left lower lobe infiltrate, thickening of bladder wall of either infectious or noninfectious etiology. Other findings nonacute.) PD Medical Decision Making - ED course Complexity details: reviewed results, re-evaluated patient, considered differential, d/w patient, d/w family ED course: The patient appeared unwell upon my arrival in the room, and I was concerned about his heart rate which was around 150 and his rapid shallow respirations. It did appear that the patient was not taking deep breaths because of the pain in his side and he did state that this was part of the problem. However, it was difficult to get a clear answer from him when I asked if he was feeling short of breath or not. While he was in the room talking with the patient and examining him, his heart rate did suddenly go from 150 down to around 100. It was still irregular and there was some ectopy on the monitor but overall, his heart rate was greatly improved. He did continue to be quite tachypneic with splinting respirations however. The did note that the patient has had an episode of tachycardia 1 other time and that he had to be given medicine to slow his heart down. She does not know what his diagnosis was at that time however. I ordered a chest x-ray which showed a large left lower lobe consolidation and the patient was started on antibiotics for this. CT scan did demonstrate this and seem to indicate that there was somewhat of the same finding though much lesser back in November 2022. However, reviewing the patient's previous chest x-ray done just a few weeks ago, there was no evidence whatsoever of any abnormality in the left lower lobe and the x-ray was read as negative. The patient's oxygen saturation was very difficult to interpret because he was quite tremulous and we could not get a consistent waveform. His monitor reading was continuously reporting a sat of upper 70s to low 80s and they did some in respiratory therapy to come and draw an ABG. This was done and showed that on 4 L of oxygen per nasal cannula, the patient had a PaO2 of 74 and an O2 sat of 94. The patient was kept on steel pplemental oxygen for the time being. I gave him Dilaudid for his pain and this did drastically improve his respiratory status. On reevaluation he was breathing comfortably and no longer tachypneic. His tremors had also resolved for the most part and he was consistently satting in the mid to upper 90s with a good waveform. I gave him oral Cardizem to prevent return to A-fib with RVR. I decided to observe the patient in the emergency department for the rest of the night since we did not have any further inpatient beds and I wanted to make sure that he was stabilized. He was able to rest comfortably and receive IV fluids while here. He was given Rocephin and Zithromax IV. His lab work showed a white blood cell count of 13.4 and a hemoglobin of 13.9. His GFR was 73 and glucose 111. Troponin was 14.1. His ER abdominal panel otherwise was unremarkable. The patient's urinalysis showed a large amount of blood, trace leukocyte esterase, 6-10 RBCs, 6-10 WBCs, and moderate bacteria. Given the findings on CT that showed some thickening of the bladder wall that could possibly represent cystitis, and felt that his treatment plan would ultimately need to include treatment for UTI. The patient remained stable overnight and actually improved quite a bit. We weaned his oxygen down and finally were able to turn it off when he was found to be satting 96 to 97% on 2 L. The patient did maintain oxygen saturations on room air of 91 to 92% which was reasonable. The patient stated he felt much better and did prefer to go home if possible. The plan is for him to go home. We have called his to come and get him and I have sent prescriptions for Omnicef and Zithromax to the pharmacy of their choice. I have relayed to the that they will need to get repeat imaging to be sure that the findings in the left lower lobe have completely resolved, as the possibility of mass has been raised by the radiologist on the CT interpretation. Departure - Departure Disposition: 01 Home, Self Care Clinical Impression: Atrial fibrillation with RVR Pneumonia Qualifiers: Pneumonia type: due to unspecified organism Laterality: left Lung location: lower lobe of lung Qualified Code(s): J18.9 - Pneumonia, unspecified organism UTI (urinary tract infection) Qualifiers: Urinary tract infection type: acute cystitis Hematuria presence: with hematuria Qualified Code(s): N30.01 - Acute cystitis with hematuria Condition: Stable Instructions: ED UTI Cystitis Male, ED Pneumonia Adult, ED Afib Prescriptions: Cefdinir 300 mg PO BID #20 cap HYDROcod/ACETAM 5/325 [[place]emp[place] 5/325] 1 - 2 tablet PO Q6H PRN #14 tablet PRN Reason: Pain Azithromycin [Zithromax] 0 mg PO DAILY #6 tablet Comments: You were found to have pneumonia and probably a urinary tract infection as well. Fortunately, there is overlap in the antibiotics that we use for both of these, and so we can use the same antibiotic regimen for this. You are in atrial fibrillation with rapid ventricular response, meaning that your heart was beating too fast in response to the A-fib. Your heart slowed down on its own and we were also able to give you a medication to help keep in a slower rhythm. You have also had good pain control here which has improved your breathing drastically. Part of the reason your oxygen was low when you first came in was that you are not breathing deeply enough. Part the reason also is your pneumonia. We have kept her on some oxygen overnight and gradually weaned you off of it and your oxygen levels actually have been pretty good this morning on regular air. As such, you are stable for discharge home. The rest of your vital signs have looked great overnight since her heart slowed down. It is important that you follow-up with your doctor to discuss whether you should be on any further medication chronically for your atrial fibrillation or whether you should be referred to follow-up with cardiology as an outpatient. I have prescribed 2 antibiotics and a pain medication for you and the prescriptions for these have been electronically transmitted to [facility] pharmacy in [place]. Please pick the prescriptions up today. You will not need to take your next dose of Zithromax/azithromycin until tomorrow. If you find that your breathing or your heart rate worsen again, please return to the emergency department. Otherwise, you may also take the pain medication to help keep your pain down and encourage better breaths.
== END 2023-10-01 08:00 | disposition home or self-care (01) ==
LOC: EDUNIT# → ED 18:04
DX: I48.91 Unspecified atrial fibrillation (principal); J18.9 Pneumonia, unspecified organism; N30.01 Acute cystitis with hematuria; G20.A1 Parkinson's disease without dyskinesia, without mention of fluctuations; F02.80 Dementia in other diseases classified elsewhere, unspecified severity, without behavioral disturbance, psychotic disturbance, mood disturbance, and anxiety; I10 Essential (primary) hypertension; E78.00 Pure hypercholesterolemia, unspecified; F17.200 Nicotine dependence, unspecified, uncomplicated; Z79.899 Other long term (current) drug therapy; Z66 Do not resuscitate
CPT/HCPCS: 36415; 71045; 74177; 80053; 81001; 82803; 83690; 84484; 85025; 87086; 93005; 96361; 96365; 96367; 96375; 99284; A9270; J1170; Q9967; 81003

== ENCOUNTER 2023-11-28 11:49 | Outpatient (CLI) | payer MEDICARE, OTHER | END 2023-11-28 11:50 | disposition critical access hospital (66) | LOC: EMS 11:49 | DX: I95.9 Hypotension, unspecified (principal); R42 Dizziness and giddiness; R41.0 Disorientation, unspecified; R39.89 Other symptoms and signs involving the genitourinary system | CPT/HCPCS: A0425; A0429 ==

== ENCOUNTER 2023-11-28 12:26 | Emergency (ER) | payer MEDICARE, OTHER ==
[2023-11-28 13:19] LABS: BASOPHILS # (AUTO) 0.1 10^3/uL (0.0-0.1); BASOPHILS % (AUTO) 0.8 %; EOSINOPHILS # (AUTO) 0.1 10^3/uL (0.0-0.7); HCT - HEMATOCRIT 41.2 % (42.0-52.0); HGB - HEMOGLOBIN 13.2 g/dL (14.0-18.0); LYMPHOCYTES # (AUTO) 1.6 10^3/uL (1.5-3.5); LYMPHOCYTES % (AUTO) 22.3 %; MEAN CORPUSCULAR HEMOGLOBIN 30.4 pg (27.0-31.0); MEAN CORPUSCULAR VOLUME 94.9 fL (80.0-94.0); MEAN PLATELET VOLUME 10.1 fL (7.4-11.4); MONOCYTES # (AUTO) 0.5 10^3/uL (0.0-1.0); MONOCYTES % (AUTO) 6.6 %; NEUTROPHILS # (AUTO) 4.8 10^3/uL (1.5-6.6); PLT - PLATELET COUNT 168 10^3/uL (130-450); RED BLOOD COUNT 4.34 10^6/uL (4.70-6.10); RED CELL DISTRIBUTION WIDTH 13.6 % (12.0-15.0); WHITE BLOOD COUNT 7.1 x10^3/uL (4.8-10.8)
--- NOTE | 2023-11-28 13:23 | ED Physician Documentation ---
History of Present Illness - Stated complaint Stated Complaint: GENERAL WEAKNESS - Chief complaint Chief Complaint: General - Additonal information Additional information: 73-year-old male here with his brought in via EMS with advanced Parkinson's and dementia, hypertension, high cholesterolPresents emergency department for hypotension, reports at home blood pressure was in the 80s over 50s and his heart rate has been all over the place. He just recently was on a heart monitor for 2 weeks and was not found to be in A-fib. He received 500 cc of IV fluids via EMS and has a chronic indwelling Reich catheter due to his advanced Parkinson's and incontinence. Patient's reports that he has been more off than his baseline unsure if he had any fevers or chills. Patient is unable to contribute anything to his history. PD PAST MEDICAL HISTORY - Past Medical History Past Medical History: Yes Cardiovascular: Hypertension, High cholesterol, Other Respiratory: None Neuro: Dementia, Parkinson's, Other Endocrine/Autoimmune: None GI: None : Kidney stones HEENT: None Psych: Depression Musculoskeletal: None Derm: None - Past Surgical History Past Surgical History: Yes Ortho: Other - Present Medications Home Medications: Ambulatory Orders Medication Instructions Recorded Confirmed Sertraline [Zoloft] 100 mg PO DAILY 08/27/18 09/30/23 Simvastatin 10 mg PO HS 08/27/18 10/01/23 Ascorbic Acid [Vitamin C] 500 mg PO DAILY PRN 09/04/18 09/30/23 Multivitamin [Multivitamins] 1 cap PO DAILY 09/04/18 09/30/23 Celecoxib [CeleBREX] 100 mg PO QPM 08/16/20 10/01/23 Riluzole [Rilutek] 50 mg PO BID 08/16/20 09/30/23 Carbidopa/Levodopa 200 mg PO TID 12/13/22 10/01/23 [Carbidopa-Levodopa 25-100 Tab] Tamsulosin [Flomax] 2 cap PO 1700 12/14/22 10/01/23 Saccharomyces Boulardii [Florastor] 250 mg PO BIDWM #1 cap 12/18/22 09/30/23 Azithromycin [Zithromax] 0 mg PO DAILY #6 tablet 10/01/23 Cefdinir 300 mg PO BID #20 cap 10/01/23 HYDROcod/ACETAM 5/325 [[place] 5/325] 1 - 2 tablet PO Q6H PRN #14 tablet 10/01/23 Cefuroxime Axetil [Cefuroxime] 500 mg PO BID 7 Days #14 tablet 11/28/23 - Allergies Allergies/Adverse Reactions: Allergies Allergy/AdvReac Type Severity Reaction Status Date / Time No Known Drug Allergies Allergy Verified 11/28/23 12:47 - Social History Does the pt smoke?: Yes Smoking Status: Current every day smoker Does the pt drink ETOH?: No Does the pt have substance abuse?: No - Immunizations Immunizations are current?: Yes - POLST Patient has POLST: Yes POLST Status: DNR PD ED PE NORMAL - Vitals Vital signs reviewed: Yes - General General: No acute distress, Well developed/nourished, Other (pt is non verbal, will nod yes and no) - HEENT HEENT: Atraumatic, PERRL - Neck Neck: Supple, no meningeal sign - Cardiac Cardiac: RRR - Respiratory Respiratory: No respiratory distress - Abdomen Abdomen: Normal bowel sounds, Soft, Non tender, Non distended, No organomegaly - Rectal Rectal: Deferred - Back Back: No CVA TTP - Derm Derm: Normal color, Warm and dry, No rash - Extremities Extremities: No deformity, No tenderness to palpate, Normal ROM s pain, No edema Results - Vitals Vitals: Vital Signs - 24 hr 11/28/23 11/28/23 11/28/23 12:20 12:50 14:19 Temperature 36.6 C Heart Rate 76 79 Respiratory 17 16 14 Rate Blood Pressure 118/85 H 141/89 H O2 Saturation 95 97 Oxygen O2 Source Room air - Labs Labs: Laboratory Tests 11/28/23 11/28/23 11/28/23 13:13 13:13 13:13 WBC 7.1 RBC 4.34 L Hgb 13.2 L Hct 41.2 L MCV 94.9 H MCH 30.4 MCHC 32.0 RDW 13.6 Plt Count 168 MPV 10.1 Neut # (Auto) 4.8 Lymph # (Auto) 1.6 [place] # (Auto) 0.5 Eos # (Auto) 0.1 Baso # (Auto) 0.1 Absolute Nucleated RBC 0.00 Nucleated RBC % 0.0 Sodium 138 Potassium 4.4 Chloride 105 Carbon Dioxide 30 Anion Gap 3.0 L BUN 22 H Creatinine 1.0 Estimated GFR (MDRD) 73 L Glucose 84 Lactic Acid 0.6 Calcium 8.6 Magnesium 1.9 Total Bilirubin 0.5 AST 14 ALT < 3 L Alkaline Phosphatase 50 Total Protein 6.2 L Albumin 3.5 Globulin 2.7 Albumin/Globulin Ratio 1.3 Lipase 18 TSH 0.63 Urine Color Urine Clarity Urine pH Ur Specific [place] Urine Protein Urine Glucose (UA) Urine Ketones Urine Occult Blood Urine Nitrite Urine Bilirubin Urine Urobilinogen Ur Leukocyte Esterase Urine RBC Urine WBC Ur Squamous Epith Cells Urine Bacteria Ur Microscopic Review Urine Culture Comments 11/28/23 15:00 WBC RBC Hgb Hct MCV MCH MCHC RDW Plt Count MPV Neut # (Auto) Lymph # (Auto) [place] # (Auto) Eos # (Auto) Baso # (Auto) Absolute Nucleated RBC Nucleated RBC % Sodium Potassium Chloride Carbon Dioxide Anion Gap BUN Creatinine Estimated GFR (MDRD) Glucose Lactic Acid Calcium Magnesium Total Bilirubin AST ALT Alkaline Phosphatase Total Protein Albumin Globulin Albumin/Globulin Ratio Lipase TSH Urine Color YELLOW Urine Clarity HAZY Urine pH 6.0 Ur Specific [place] 1.015 Urine Protein NEGATIVE Urine Glucose (UA) NEGATIVE Urine Ketones NEGATIVE Urine Occult Blood LARGE H Urine Nitrite NEGATIVE Urine Bilirubin NEGATIVE Urine Urobilinogen 0.2 (NORMAL) Ur Leukocyte Esterase MODERATE H Urine RBC TNTC H Urine WBC 6-10 H Ur Squamous Epith Cells NONE SEEN Urine Bacteria Many H Ur Microscopic Review INDICATED Urine Culture Comments INDICATED - Rads (name of study) Head CT Relevant Findings:: Final report received, EMP independent interpretation of test, Other (No intracranial hemorrhages or abnormalities) PD Medical Decision Making - ED course ED course: 73-year-old male presents emergency department for increased generalized weakness and reports he is not entirely at his baseline. He does have advanced dementia as well as Parkinson's who is unable to contribute much to his history he does nod yes or no but for the most part he is nonverbal. Patient does have a Reich catheter in place and has been treated for acute urinary tract infection this summer and was pansensitive. He did have decreased urinary output most likely due to dehydration we gave him a liter of fluids here in the ER and he was able to produce more urine urinalysis did reveal leukocytes this could be colonized but was adamant that we treat him for urinary tract infection. Sent urine to lab for further evaluation and patient was started on cefuroxime here in the ER prescription of cefuroxime was sent to patient's preferred pharmacy. Other labs are complete for further evaluation he has no leukocytosis no anemia mild FREN[place] BUN 22, GFR 73 normal creatinine. Out of abundance of caution we went ahead with a head CT for his altered mental status and it was also found to be unremarkable no acute intracranial hemorrhages or abnormalities. Patient's does report that they did not have a POLST form filled out and the goals of care conversation was not had with patient's primary care provider we did briefly discuss this and patient's was eager to fill out a POLST form here in the emergency department and she made him DO NOT RESUSCITATE and comfort measures only. She was informed that if she changes her mind at any point in time she is more than welcome to do so and was told to follow-up with her primary care provider about the updated POLST form as well as DNR status and was told to follow-up with primary care provider for a palliative care consult as they would greatly benefit from this and patient's also agreed with the plan. All questions answered return precautions given patient safer discharge at this time. Departure - Departure Disposition: 01 Home, Self Care Clinical Impression: Weakness Altered mental status Qualifiers: Altered mental status type: unspecified Qualified Code(s): R41.82 - Altered mental status, unspecified UTI (urinary tract infection) Qualifiers: Urinary tract infection type: catheter-associated UTI Instructions: ED UTI Cystitis Male Prescriptions: Cefuroxime Axetil [Cefuroxime] 500 mg PO BID 7 Days #14 tablet Comments: Thank you for trusting us with your care. We have evaluated your head CT as well as your labs and I am not seeing any acute abnormalities or findings that could indicate why your is feeling this way that is possible that he may have a urinary tract infection although this could be colonized as well. We have started him on antibiotics called cefuroxime and send this prescription to your preferred pharmacy. I would also strongly suggest that you Follow-up with your primary care provider for a palliative care consult for further support. Make sure that you hang up your POLST form on your fridge and talk with your primary care provider about the updated POLST form that we have completed today. Please come back in if you have any worsening or concerning symptoms. Forms: PCP List Discharge Date/Time: 11/28/23 16:12
[2023-11-28 13:33] LABS: LIPASE 18 U/L (11-82); MAGNESIUM 1.9 mg/dL (1.7-2.3)
[2023-11-28] MEDS: SODIUM CHLORIDE 0.9% 500 ML IV ONE (13:34)
[2023-11-28 13:36] LABS: ALBUMIN 3.5 g/dL (3.2-5.5); ALBUMIN/GLOBULIN RATIO 1.3 (1.0-2.2); ALKALINE PHOSPHATASE 50 IU/L (42-121); ALT ALANINE AMINOTRANSFERASE < 3 IU/L (10-60); AST ASPARTATE AMINOTRANSFERASE 14 IU/L (10-42); BILIRUBIN,TOTAL 0.5 mg/dL (0.2-1.0); BUN - BLOOD UREA NITROGEN 22 mg/dL (6-20); CALCIUM 8.6 mg/dL (8.5-10.3); CARBON DIOXIDE - CO2 30 mmol/L (21-32); CHLORIDE 105 mmol/L (101-111); GFR - MDRD 73 (>89); GLUCOSE 84 mg/dL (74-104); POTASSIUM 4.4 mmol/L (3.5-4.5); SODIUM 138 mmol/L (135-145); TOTAL PROTEIN 6.2 g/dL (6.4-8.9)
[2023-11-28 13:48] LABS: THYROID STIMULATING HORMONE 0.63 uIU/mL (0.34-5.60)
--- NOTE | 2023-11-28 14:29 | CT Report ---
PROCEDURE: Head WO INDICATIONS: AMS TECHNIQUE: Noncontrast 4.5 mm thick angled axial sections acquired from the foramen magnum to the vertex. For r adiation dose reduction, the following was used: automated exposure control, adjustment of mA and/or kV according to patient size. COMPARISON: 08/25/2021. FINDINGS: Image quality: Excellent. CSF spaces: Basal cisterns are patent. No extra-axial fluid collections. Ventricles are normal in size and shape. Brain: No midline shift. No intracranial masses or hemorrhage. Cutler-white matter interface is norm al. There is age-related volume loss and mild/mod/severe periventricular white matter change consist ent with small vessel ischemic change. Skull and face: Calvarium and visualized facial bones are intact, without suspicious lesions. Sinuses: Visualized sinuses and mastoids are clear. IMPRESSION: No acute intracranial pathology. Reviewed by: James Penaloza MD on 11/28/2023 2:28 PM PDT Approved by: James Penaloza MD on 11/28/2023 2:28 PM PDT Station ID: [id number]
[2023-11-28 15:11] LABS: BILIRUBIN,URINE NEGATIVE (NEGATIVE); GLUCOSE, URINE (UA) NEGATIVE (NEGATIVE); KETONES,URINE (UA) NEGATIVE (NEGATIVE); LEUKOCYTE ESTERASE, URINE MODERATE (NEGATIVE); NITRITE,URINE NEGATIVE (NEGATIVE); OCCULT BLOOD,URINE LARGE (NEGATIVE); PROTEIN,URINE NEGATIVE (NEGATIVE); UROBILINOGEN,URINE 0.2 (NORMAL) E.U./dL (NORMAL)
[2023-11-28 15:15] LABS: CLARITY,URINE HAZY (CLEAR)
[2023-11-28 15:18] LABS: BACTERIA,URINE Many /HPF (None Seen); RBC,URINE TNTC /HPF (0-5); SQUAMOUS EPITHELIAL CELL,UR NONE SEEN (<= Few)
[2023-11-28 15:44] VITALS: BP 141/89; O2SAT 97
[2023-11-28] MEDS: cefuroxime axetiL 250 MG TABLET PO STA (15:56)
== END 2023-11-28 16:12 | disposition home or self-care (01) ==
LOC: EDUNIT# → ED 12:26
DX: T83.511A Infection and inflammatory reaction due to indwelling urethral catheter, initial encounter (principal); N30.00 Acute cystitis without hematuria; R53.1 Weakness; R41.82 Altered mental status, unspecified; R94.31 Abnormal electrocardiogram [ECG] [EKG]; N17.9 Acute kidney failure, unspecified; G20.A1 Parkinson's disease without dyskinesia, without mention of fluctuations; F02.80 Dementia in other diseases classified elsewhere, unspecified severity, without behavioral disturbance, psychotic disturbance, mood disturbance, and anxiety; I10 Essential (primary) hypertension; E78.00 Pure hypercholesterolemia, unspecified; R32 Unspecified urinary incontinence; F32.A Depression, unspecified; I95.9 Hypotension, unspecified; Y84.6 Urinary catheterization as the cause of abnormal reaction of the patient, or of later complication, without mention of misadventure at the time of the procedure; Z66 Do not resuscitate; Z79.899 Other long term (current) drug therapy; Z87.442 Personal history of urinary calculi
CPT/HCPCS: 36415; 70450; 80053; 81001; 83605; 83690; 83735; 84443; 85025; 87077; 87086; 87181; 93005; 96360; 99284; A9270; 81003